=== PATIENT | male | born 1955 | race Caucasian/White ===

== ENCOUNTER 2022-10-11 00:29 | Inpatient (IN) | payer OTHER ==
[2022-10-11 01:59] LABS: HEMATOCRIT 20.8 % (35.4-49); HEMOGLOBIN 7.4 GM/dL (11.7-16.9); MCH 29.7 pg (25.7-33.7); MCHC 35.6 g/dl (32.0-35.9); MEAN CELL VOLUME 83.4 fl (80-96); MEAN PLT VOLUME 7.5 fl (7.5-11.1); PLATELET COUNT 155 10^3/uL (134-434); RDW 20.3 % (11.9-15.9); WHITE BLOOD COUNT 3.8 K/mm3 (4.0-10.0)
[2022-10-11 02:06] LABS: INR 1.15 (0.83-1.09); PROTHROMBIN TIME (PATIENT) 13.3 SEC (9.7-13.0)
[2022-10-11 02:09] LABS: ACTIVATED PTT 26.7 SECONDS (25.2-36.5)
[2022-10-11 02:18] LABS: CALCIUM 8.1 mg/dL (8.5-10.1)
[2022-10-11 02:19] LABS: ALBUMIN 1.6 g/dl (3.4-5.0); BLOOD UREA NITROGEN 13.2 mg/dL (7-18)
[2022-10-11 02:22] LABS: CREATININE 1.3 mg/dL (0.55-1.3)
[2022-10-11 02:23] LABS: BILIRUBIN,TOTAL 1.3 mg/dL (0.2-1); TOT PROT 4.7 g/dl (6.4-8.2)
[2022-10-11 03:19] LABS: ANISOCYTOSIS 2+; MACROCYTOSIS 0; OVALOCYTE 2+
[2022-10-11] MEDS ORDERED: POTASSIUM CHLORIDE ORAL LIQUID 20 MEQ/15 ML PO ONE (04:32)
[2022-10-11] MEDS ORDERED: POTASSIUM CHLORIDE ORAL LIQUID 20 MEQ/15 ML ONE (04:42)
[2022-10-11] MEDS ORDERED: ALBUTEROL SO4 2.5/IPRATROPIUM 0.5 INH SOL 3 ML VIAL.NEB. NEB PRN (06:39)
[2022-10-11] MEDS ORDERED: MAGNESIUM HYDROX 2400MG/30ML ORAL SUSPENSION 30 ML CUP PO PRN (06:43)
[2022-10-11] MEDS ORDERED: SODIUM PHOSPHATE/NA BIPHOS 133 ML ENEMA RC PRN (06:43)
[2022-10-11] MEDS: LEVOTHYROXINE NA 150 MCG TABLET PO SCH (07:29)
[2022-10-11] MEDS: LIPASE/PROTEASE/AMYLASE 6,000 UNIT CAPSULE PO SCH ×3 (07:29→17:55)
[2022-10-11] MEDS ORDERED: LEVOTHYROXINE NA 75 MCG TABLET (FP) ONE (07:33)
[2022-10-11 07:55] LABS: MAGNESIUM 1.6 mg/dL (1.8-2.4)
[2022-10-11 07:59] LABS: PHOSPHOROUS 1.6 mg/dL (2.5-4.9)
[2022-10-11] MEDS ORDERED: SODIUM CHLORIDE NASAL SPRAY 44 ML BOTTLE NS PRN (08:00)
[2022-10-11 11:49] LABS: RETICULOCYTES 4.04 % (0.5-1.5)
[2022-10-11] MEDS: FERROUS SO4 325 MG TABLET (FP) PO SCH (12:30)
[2022-10-11] MEDS: CYANOCOBALAMIN 1,000 MCG TABLET (FP) PO SCH (12:31)
[2022-10-11] MEDS: PYRIDOXINE HCL (B-6) 50 MG TABLET (FP) PO SCH (12:31)
[2022-10-11] MEDS: FOLIC ACID 1 MG TABLET (FP) PO SCH (12:31)
[2022-10-11] MEDS: CHOLECALCIFEROL (VIT D3) 5000 UNITS (125 MCG) CAP PO SCH (12:32)
[2022-10-11 17:33] LABS: BASO % 1.8 % (0-2.0); EOS % 1.4 % (0-4.5); HEMATOCRIT 24.3 % (35.4-49); HEMOGLOBIN 8.5 GM/dL (11.7-16.9); MEAN PLT VOLUME 6.9 fl (7.5-11.1); MONO % 25.3 % (3.8-10.2); NEUT % 34.5 % (42.8-82.8); PLATELET COUNT 152 10^3/uL (134-434); RBC 2.93 M/mm3 (4.00-5.60); RDW 17.7 % (11.9-15.9); WHITE BLOOD COUNT 4.5 K/mm3 (4.0-10.0)
[2022-10-11] MEDS: COLLAGENASE CLOSTRIDIUM HIST. 30 GRAMS TUBE TP SCH (17:58)
[2022-10-11 18:00] LABS: POTASSIUM 3.4 mmol/L (3.5-5.1)
[2022-10-11 18:01] LABS: ANISOCYTOSIS 3+; MACROCYTOSIS 0; TEAR DROP CELLS 1+
[2022-10-11 18:02] LABS: BLOOD UREA NITROGEN 18.2 mg/dL (7-18)
[2022-10-11 18:06] LABS: CREATININE 1.6 mg/dL (0.55-1.3)
[2022-10-11] MEDS: MIRTAZAPINE 15 MG TABLET (FP) PO SCH (21:28)
[2022-10-11] MEDS: oxyCODONE HCL 5 MG TABLET PO PRN (21:29)
[2022-10-12] MEDS: GENTAMICIN SO4 0.1% TOP CREAM 15 GM/TUBE TP SCH ×3 (01:04→21:30)
[2022-10-12] MEDS: LEVOTHYROXINE NA 150 MCG TABLET PO SCH (07:23)
[2022-10-12 08:06] LABS: BASO % 1.4 % (0-2.0); HEMATOCRIT 21.6 % (35.4-49); HEMOGLOBIN 7.6 GM/dL (11.7-16.9); LYMPH % 44.1 % (8-40); MCH 28.9 pg (25.7-33.7); MCHC 35.1 g/dl (32.0-35.9); MEAN CELL VOLUME 82.3 fl (80-96); NEUT % 33.5 % (42.8-82.8); PLATELET COUNT 165 10^3/uL (134-434); RBC 2.63 M/mm3 (4.00-5.60); RDW 18.3 % (11.9-15.9); WHITE BLOOD COUNT 4.7 K/mm3 (4.0-10.0)
[2022-10-12 08:21] LABS: POTASSIUM 3.6 mmol/L (3.5-5.1)
[2022-10-12 08:25] LABS: BLOOD UREA NITROGEN 21.6 mg/dL (7-18); CALCIUM 7.7 mg/dL (8.5-10.1)
[2022-10-12 08:28] LABS: CREATININE 1.9 mg/dL (0.55-1.3)
[2022-10-12] MEDS ORDERED: IRON SUCROSE INJECTION 200 MG in SODIUM CHLORIDE 90 ML IVPB ONE (09:22)
[2022-10-12 10:19] LABS: MAGNESIUM 1.7 mg/dL (1.8-2.4)
[2022-10-12 10:22] LABS: PHOSPHOROUS 2.2 mg/dL (2.5-4.9)
[2022-10-12] MEDS ORDERED: NAPH,MB-DB/K PH,MBDB POWDER PACKET GT ONE (10:46)
[2022-10-12] MEDS: FOLIC ACID 1 MG TABLET (FP) PO SCH (11:14)
[2022-10-12] MEDS: PANTOPRAZOLE 40 MG TABLET PO SCH (11:15)
[2022-10-12] MEDS: FERROUS SO4 325 MG TABLET (FP) PO SCH (11:15)
[2022-10-12] MEDS: CYANOCOBALAMIN 1,000 MCG TABLET (FP) PO SCH (11:15)
[2022-10-12] MEDS: CHOLECALCIFEROL (VIT D3) 5000 UNITS (125 MCG) CAP PO SCH (11:16)
[2022-10-12] MEDS: PYRIDOXINE HCL (B-6) 50 MG TABLET (FP) PO SCH (11:16)
[2022-10-12] MEDS: LIPASE/PROTEASE/AMYLASE 6,000 UNIT CAPSULE PO SCH ×3 (11:18→17:29)
[2022-10-12] MEDS: COLLAGENASE CLOSTRIDIUM HIST. 30 GRAMS TUBE TP SCH (13:01)
[2022-10-12] MEDS: MIRTAZAPINE 15 MG TABLET (FP) PO SCH (21:25)
[2022-10-13] MEDS: oxyCODONE HCL 5 MG TABLET PO PRN (01:46)
[2022-10-13] MEDS: LEVOTHYROXINE NA 100 MCG TABLET (FP) PO SCH (06:22)
[2022-10-13 09:09] LABS: HEMATOCRIT 24.4 % (35.4-49); HEMOGLOBIN 8.5 GM/dL (11.7-16.9); MCH 29.2 pg (25.7-33.7); MCHC 34.9 g/dl (32.0-35.9); MEAN CELL VOLUME 83.8 fl (80-96); MEAN PLT VOLUME 6.8 fl (7.5-11.1); PLATELET COUNT 151 10^3/uL (134-434); RBC 2.92 M/mm3 (4.00-5.60)
[2022-10-13 09:16] LABS: POTASSIUM 3.5 mmol/L (3.5-5.1)
[2022-10-13 09:18] LABS: ALBUMIN 1.5 g/dl (3.4-5.0); BLOOD UREA NITROGEN 30.4 mg/dL (7-18); CALCIUM 8.1 mg/dL (8.5-10.1)
[2022-10-13 09:19] LABS: MAGNESIUM 1.6 mg/dL (1.8-2.4)
[2022-10-13 09:22] LABS: CREATININE 2.4 mg/dL (0.55-1.3); PHOSPHOROUS 1.6 mg/dL (2.5-4.9)
[2022-10-13 09:23] LABS: BILIRUBIN,TOTAL 1.2 mg/dL (0.2-1); TOT PROT 4.2 g/dl (6.4-8.2)
[2022-10-13 10:01] LABS: ANISOCYTOSIS 0; HELMET CELLS 0; HOWELL-JOLLY BODIES 0; MACROCYTOSIS 0; OVALOCYTE 0; ROULEAU 0; SICKELED CELLS 0; TARGET CELLS 0; TEAR DROP CELLS 0; TOXIC GRANULATION 0
[2022-10-13] MEDS: ALBUMIN HUMAN 25% 12.5 GM/50 ML VIAL IV SCH ×3 (10:30→13:04)
[2022-10-13] MEDS: GENTAMICIN SO4 0.1% TOP CREAM 15 GM/TUBE TP SCH ×2 (10:59→21:57)
[2022-10-13] MEDS: PANTOPRAZOLE 40 MG TABLET PO SCH (10:59)
[2022-10-13] MEDS: FOLIC ACID 1 MG TABLET (FP) PO SCH (10:59)
[2022-10-13] MEDS: LIPASE/PROTEASE/AMYLASE 6,000 UNIT CAPSULE PO SCH ×3 (10:59→17:26)
[2022-10-13] MEDS: FERROUS SO4 325 MG TABLET (FP) PO SCH (10:59)
[2022-10-13] MEDS: CYANOCOBALAMIN 1,000 MCG TABLET (FP) PO SCH (11:00)
[2022-10-13] MEDS: COLLAGENASE CLOSTRIDIUM HIST. 30 GRAMS TUBE TP SCH (11:00)
[2022-10-13] MEDS: PYRIDOXINE HCL (B-6) 50 MG TABLET (FP) PO SCH (11:00)
[2022-10-13] MEDS: CHOLECALCIFEROL (VIT D3) 5000 UNITS (125 MCG) CAP PO SCH (11:00)
[2022-10-13] MEDS ORDERED: VANCOMYCIN 1 GM/200 ML PREMIX BAG (RESTRICTED TO ID ONLY) IVPB ONE (11:38)
[2022-10-13] MEDS ORDERED: VANCOMYCIN/WATER FOR INJ (PEG) 1,000 MG/200 ML BAG IVPB ONE (12:00)
[2022-10-13] MEDS: ACETAMINOPHEN 325 MG TABLET (FP) PO PRN (19:58)
[2022-10-13] MEDS: MIRTAZAPINE 15 MG TABLET (FP) PO SCH (21:56)
[2022-10-13] MEDS ORDERED: ACETAMINOPHEN 1000 MG/100 ML BAG IVPB ONE (22:50)
[2022-10-13] MEDS: MEROPENEM 500 MG in DEXTROSE 5%-WATER 100 ML IVPB SCH (23:49)
[2022-10-14] MEDS: LEVOTHYROXINE NA 100 MCG TABLET (FP) PO SCH (06:16)
[2022-10-14] MEDS: MEROPENEM 500 MG in DEXTROSE 5%-WATER 100 ML IVPB SCH ×2 (11:52→22:35)
[2022-10-14] MEDS: FOLIC ACID 1 MG TABLET (FP) PO SCH (11:53)
[2022-10-14] MEDS: PYRIDOXINE HCL (B-6) 50 MG TABLET (FP) PO SCH (11:53)
[2022-10-14] MEDS: FERROUS SO4 325 MG TABLET (FP) PO SCH (11:53)
[2022-10-14] MEDS: CYANOCOBALAMIN 1,000 MCG TABLET (FP) PO SCH (11:53)
[2022-10-14] MEDS: CHOLECALCIFEROL (VIT D3) 5000 UNITS (125 MCG) CAP PO SCH (11:53)
[2022-10-14] MEDS: LIPASE/PROTEASE/AMYLASE 6,000 UNIT CAPSULE PO SCH ×3 (11:53→18:42)
[2022-10-14] MEDS: PANTOPRAZOLE 40 MG TABLET PO SCH (11:53)
[2022-10-14] MEDS: COLLAGENASE CLOSTRIDIUM HIST. 30 GRAMS TUBE TP SCH (11:54)
[2022-10-14] MEDS: GENTAMICIN SO4 0.1% TOP CREAM 15 GM/TUBE TP SCH ×2 (11:54→21:19)
[2022-10-14] MEDS: ACETAMINOPHEN 325 MG TABLET (FP) PO PRN (11:56)
[2022-10-14] MEDS ORDERED: SODIUM CHLORIDE 250 ML IV PRN (14:30)
[2022-10-14] MEDS: MIRTAZAPINE 15 MG TABLET (FP) PO SCH (21:21)
[2022-10-14] MEDS ORDERED: MEROPENEM 500 MG in DEXTROSE 5%-WATER 100 ML IVPB SCH (22:00)
[2022-10-15 01:56] LABS: EPI CELLS >36 /uL (0-25.1); HYALINE CASTS 2 /uL (0-3.1); PH,URINE 5.5 (5.0-8.0); URINE APPEARANCE TURBID; URINE BACTERIA 1497 /uL (0-1359); URINE BILIRUBIN 1+ (NEGATIVE); URINE COLOR DK YELLOW; URINE GLUCOSE (UA) NEGATIVE (NEGATIVE); URINE KETONE TRACE (NEGATIVE); URINE LEUK ESTERASE 3+ (NEGATIVE); URINE NITRITE NEGATIVE (NEGATIVE); URINE PROTEIN 2+ (NEGATIVE); URINE WBC 36727 /uL (0-25.8)
[2022-10-15] MEDS: ACETAMINOPHEN 325 MG TABLET (FP) PO PRN ×2 (05:05→22:19)
[2022-10-15] MEDS: LEVOTHYROXINE NA 100 MCG TABLET (FP) PO SCH (06:00)
[2022-10-15 06:20] LABS: YEAST NONE SEEN (NEGATIVE)
[2022-10-15] MEDS: LIPASE/PROTEASE/AMYLASE 6,000 UNIT CAPSULE PO SCH ×3 (07:55→16:38)
[2022-10-15 08:17] LABS: BASO % 0.6 % (0-2.0); EOS % 2.2 % (0-4.5); HEMATOCRIT 20.2 % (35.4-49); HEMOGLOBIN 7.1 GM/dL (11.7-16.9); LYMPH % 20.2 % (8-40); MCH 29.4 pg (25.7-33.7); MCHC 35.2 g/dl (32.0-35.9); MEAN CELL VOLUME 83.7 fl (80-96); MONO % 9.5 % (3.8-10.2); NEUT % 67.5 % (42.8-82.8); PLATELET COUNT 99 10^3/uL (134-434); RBC 2.42 M/mm3 (4.00-5.60); RDW 17.7 % (11.9-15.9); WHITE BLOOD COUNT 6.9 K/mm3 (4.0-10.0)
[2022-10-15 08:29] LABS: POTASSIUM 3.3 mmol/L (3.5-5.1)
[2022-10-15 08:47] LABS: ALBUMIN 1.4 g/dl (3.4-5.0); CALCIUM 8.4 mg/dL (8.5-10.1)
[2022-10-15 08:51] LABS: CREATININE 2.2 mg/dL (0.55-1.3)
[2022-10-15 08:52] LABS: TOT PROT 3.9 g/dl (6.4-8.2)
[2022-10-15] MEDS ORDERED: EPOETIN ALFA-EPBX 4,000 UNIT/ML VIAL IVPUSH ONE (09:30)
[2022-10-15] MEDS: PYRIDOXINE HCL (B-6) 50 MG TABLET (FP) PO SCH (09:30)
[2022-10-15] MEDS: PANTOPRAZOLE 40 MG TABLET PO SCH (09:30)
[2022-10-15] MEDS: FERROUS SO4 325 MG TABLET (FP) PO SCH (09:31)
[2022-10-15] MEDS: FOLIC ACID 1 MG TABLET (FP) PO SCH (09:31)
[2022-10-15] MEDS: CYANOCOBALAMIN 1,000 MCG TABLET (FP) PO SCH (09:39)
[2022-10-15] MEDS: CHOLECALCIFEROL (VIT D3) 5000 UNITS (125 MCG) CAP PO SCH (09:39)
[2022-10-15] MEDS: COLLAGENASE CLOSTRIDIUM HIST. 30 GRAMS TUBE TP SCH (09:39)
[2022-10-15] MEDS: MEROPENEM 500 MG in DEXTROSE 5%-WATER 100 ML IVPB SCH ×2 (14:40→23:41)
[2022-10-15 15:34] VITALS: BMI 22.8
[2022-10-15] MEDS: GENTAMICIN SO4 0.1% TOP CREAM 15 GM/TUBE TP SCH ×2 (16:37→22:20)
[2022-10-15] MEDS: MIRTAZAPINE 15 MG TABLET (FP) PO SCH (22:19)
[2022-10-16] MEDS: LEVOTHYROXINE NA 100 MCG TABLET (FP) PO SCH (06:07)
[2022-10-16 08:46] LABS: HEMATOCRIT 21.5 % (35.4-49); HEMOGLOBIN 7.4 GM/dL (11.7-16.9); MCH 29.2 pg (25.7-33.7); MCHC 34.4 g/dl (32.0-35.9); MEAN CELL VOLUME 84.8 fl (80-96); MEAN PLT VOLUME 7.5 fl (7.5-11.1); PLATELET COUNT 123 10^3/uL (134-434); RBC 2.53 M/mm3 (4.00-5.60); RDW 17.5 % (11.9-15.9); WHITE BLOOD COUNT 8.4 K/mm3 (4.0-10.0)
[2022-10-16] MEDS: LIPASE/PROTEASE/AMYLASE 6,000 UNIT CAPSULE PO SCH ×3 (08:59→17:21)
[2022-10-16] MEDS: FERROUS SO4 325 MG TABLET (FP) PO SCH (09:07)
[2022-10-16] MEDS: FOLIC ACID 1 MG TABLET (FP) PO SCH (09:07)
[2022-10-16] MEDS: PANTOPRAZOLE 40 MG TABLET PO SCH (09:08)
[2022-10-16] MEDS: CYANOCOBALAMIN 1,000 MCG TABLET (FP) PO SCH (09:08)
[2022-10-16] MEDS: CHOLECALCIFEROL (VIT D3) 5000 UNITS (125 MCG) CAP PO SCH (09:11)
[2022-10-16] MEDS: PYRIDOXINE HCL (B-6) 50 MG TABLET (FP) PO SCH (09:11)
[2022-10-16] MEDS: COLLAGENASE CLOSTRIDIUM HIST. 30 GRAMS TUBE TP SCH (09:12)
[2022-10-16] MEDS: GENTAMICIN SO4 0.1% TOP CREAM 15 GM/TUBE TP SCH ×2 (09:12→21:49)
[2022-10-16] MEDS: MEROPENEM 500 MG in DEXTROSE 5%-WATER 100 ML IVPB SCH (13:34)
[2022-10-16 16:20] LABS: BF WBC & OTHER NUCLEATED CELLS 415 /mm3; BODY FLUID MONOCYTE 9 %
[2022-10-16] MEDS: MIRTAZAPINE 15 MG TABLET (FP) PO SCH (21:48)
[2022-10-16] MEDS: ACETAMINOPHEN 325 MG TABLET (FP) PO PRN (21:48)
[2022-10-17] MEDS: MEROPENEM 500 MG in DEXTROSE 5%-WATER 100 ML IVPB SCH ×3 (00:47→23:50)
[2022-10-17] MEDS: LEVOTHYROXINE NA 100 MCG TABLET (FP) PO SCH (05:59)
[2022-10-17] MEDS: LIPASE/PROTEASE/AMYLASE 6,000 UNIT CAPSULE PO SCH ×3 (07:50→17:58)
[2022-10-17] MEDS: ALBUMIN HUMAN 25% 12.5 GM/50 ML VIAL IV SCH ×4 (08:15→12:19)
[2022-10-17] MEDS ORDERED: EPOETIN ALFA-EPBX 4,000 UNIT/ML VIAL SQ ONE (09:00)
[2022-10-17] MEDS ORDERED: SODIUM CHLORIDE 250 ML IV PRN (09:00)
[2022-10-17 09:24] LABS: HEMATOCRIT 19.4 % (35.4-49); MCH 29.9 pg (25.7-33.7); MCHC 36.1 g/dl (32.0-35.9); MEAN PLT VOLUME 6.9 fl (7.5-11.1); PLATELET COUNT 89 10^3/uL (134-434); RBC 2.34 M/mm3 (4.00-5.60); RDW 17.2 % (11.9-15.9); WHITE BLOOD COUNT 9.4 K/mm3 (4.0-10.0)
[2022-10-17 09:47] LABS: POTASSIUM 3.3 mmol/L (3.5-5.1)
[2022-10-17 09:49] LABS: CALCIUM 8.3 mg/dL (8.5-10.1)
[2022-10-17 09:53] LABS: CREATININE 1.2 mg/dL (0.55-1.3)
[2022-10-17 09:55] LABS: BILIRUBIN,TOTAL 0.8 mg/dL (0.2-1); TOT PROT 4.3 g/dl (6.4-8.2)
[2022-10-17 10:02] LABS: ANISOCYTOSIS 0; HELMET CELLS 0; HOWELL-JOLLY BODIES 0; MACROCYTOSIS 0; OVALOCYTE 0; ROULEAU 0; SICKELED CELLS 0; TARGET CELLS 0; TEAR DROP CELLS 0; TOXIC GRANULATION 0
[2022-10-17] MEDS: CHOLECALCIFEROL (VIT D3) 5000 UNITS (125 MCG) CAP PO SCH (13:19)
[2022-10-17] MEDS: CYANOCOBALAMIN 1,000 MCG TABLET (FP) PO SCH (13:19)
[2022-10-17] MEDS: PYRIDOXINE HCL (B-6) 50 MG TABLET (FP) PO SCH (13:19)
[2022-10-17] MEDS: FERROUS SO4 325 MG TABLET (FP) PO SCH (13:19)
[2022-10-17] MEDS: FOLIC ACID 1 MG TABLET (FP) PO SCH (13:19)
[2022-10-17] MEDS: PANTOPRAZOLE 40 MG TABLET PO SCH (13:19)
[2022-10-17] MEDS: GENTAMICIN SO4 0.1% TOP CREAM 15 GM/TUBE TP SCH ×2 (14:00→21:51)
[2022-10-17] MEDS: COLLAGENASE CLOSTRIDIUM HIST. 30 GRAMS TUBE TP SCH (14:00)
[2022-10-17 14:10] LABS: BODY FLUID ALBUMIN 0.9 g/dL (Not Estab.)
[2022-10-17] MEDS: ACETAMINOPHEN 325 MG TABLET (FP) PO PRN (21:47)
[2022-10-17] MEDS: MIRTAZAPINE 15 MG TABLET (FP) PO SCH (21:50)
[2022-10-18] MEDS: LEVOTHYROXINE NA 100 MCG TABLET (FP) PO SCH (06:36)
[2022-10-18] MEDS: LIPASE/PROTEASE/AMYLASE 6,000 UNIT CAPSULE PO SCH ×3 (08:04→17:55)
[2022-10-18 08:32] LABS: HEMATOCRIT 23.5 % (35.4-49); HEMOGLOBIN 8.4 GM/dL (11.7-16.9); MCH 29.6 pg (25.7-33.7); MCHC 35.8 g/dl (32.0-35.9); MEAN CELL VOLUME 82.9 fl (80-96); MEAN PLT VOLUME 7.1 fl (7.5-11.1); PLATELET COUNT 90 10^3/uL (134-434); RBC 2.83 M/mm3 (4.00-5.60); WHITE BLOOD COUNT 11.2 K/mm3 (4.0-10.0)
[2022-10-18 09:13] LABS: POTASSIUM 3.2 mmol/L (3.5-5.1)
[2022-10-18 09:30] LABS: ALBUMIN 1.8 g/dl (3.4-5.0)
[2022-10-18 09:31] LABS: CALCIUM 8.4 mg/dL (8.5-10.1)
[2022-10-18 09:32] LABS: BLOOD UREA NITROGEN 21.5 mg/dL (7-18)
[2022-10-18 09:35] LABS: CREATININE 1.4 mg/dL (0.55-1.3)
[2022-10-18 09:36] LABS: TOT PROT 4.3 g/dl (6.4-8.2)
[2022-10-18 09:37] LABS: BILIRUBIN,TOTAL 0.9 mg/dL (0.2-1)
[2022-10-18] MEDS: CHOLECALCIFEROL (VIT D3) 5000 UNITS (125 MCG) CAP PO SCH (09:47)
[2022-10-18] MEDS: COLLAGENASE CLOSTRIDIUM HIST. 30 GRAMS TUBE TP SCH (09:48)
[2022-10-18] MEDS: CYANOCOBALAMIN 1,000 MCG TABLET (FP) PO SCH (09:48)
[2022-10-18] MEDS: FERROUS SO4 325 MG TABLET (FP) PO SCH (09:48)
[2022-10-18] MEDS: PYRIDOXINE HCL (B-6) 50 MG TABLET (FP) PO SCH (09:48)
[2022-10-18] MEDS: FOLIC ACID 1 MG TABLET (FP) PO SCH (09:48)
[2022-10-18] MEDS: GENTAMICIN SO4 0.1% TOP CREAM 15 GM/TUBE TP SCH ×2 (09:48→21:47)
[2022-10-18] MEDS: PANTOPRAZOLE 40 MG TABLET PO SCH (09:48)
[2022-10-18 09:59] LABS: ANISOCYTOSIS 0; MACROCYTOSIS 0
[2022-10-18] MEDS: MEROPENEM 500 MG in DEXTROSE 5%-WATER 100 ML IVPB SCH (10:42)
[2022-10-18] MEDS: ACETAMINOPHEN 325 MG TABLET (FP) PO PRN (14:44)
[2022-10-18] MEDS: MIRTAZAPINE 15 MG TABLET (FP) PO SCH (21:47)
[2022-10-19] MEDS: MEROPENEM 500 MG in DEXTROSE 5%-WATER 100 ML IVPB SCH ×3 (01:01→23:46)
[2022-10-19] MEDS: LEVOTHYROXINE NA 100 MCG TABLET (FP) PO SCH (06:13)
[2022-10-19] MEDS: PYRIDOXINE HCL (B-6) 50 MG TABLET (FP) PO SCH (09:42)
[2022-10-19] MEDS: CYANOCOBALAMIN 1,000 MCG TABLET (FP) PO SCH (09:42)
[2022-10-19] MEDS: PANTOPRAZOLE 40 MG TABLET PO SCH (09:42)
[2022-10-19] MEDS: LIPASE/PROTEASE/AMYLASE 6,000 UNIT CAPSULE PO SCH ×3 (09:42→17:51)
[2022-10-19] MEDS: FOLIC ACID 1 MG TABLET (FP) PO SCH (09:42)
[2022-10-19] MEDS: FERROUS SO4 325 MG TABLET (FP) PO SCH (09:42)
[2022-10-19] MEDS: CHOLECALCIFEROL (VIT D3) 5000 UNITS (125 MCG) CAP PO SCH (09:42)
[2022-10-19] MEDS: GENTAMICIN SO4 0.1% TOP CREAM 15 GM/TUBE TP SCH ×2 (09:43→21:39)
[2022-10-19] MEDS: COLLAGENASE CLOSTRIDIUM HIST. 30 GRAMS TUBE TP SCH (09:43)
[2022-10-19 10:03] LABS: BASO % 0.4 % (0-2.0); EOS % 1.1 % (0-4.5); HEMATOCRIT 23.1 % (35.4-49); HEMOGLOBIN 8.5 GM/dL (11.7-16.9); LYMPH % 15.9 % (8-40); MCH 30.6 pg (25.7-33.7); MCHC 36.8 g/dl (32.0-35.9); MEAN CELL VOLUME 83.2 fl (80-96); MEAN PLT VOLUME 7.4 fl (7.5-11.1); MONO % 3.8 % (3.8-10.2); NEUT % 78.8 % (42.8-82.8); PLATELET COUNT 92 10^3/uL (134-434); RBC 2.78 M/mm3 (4.00-5.60); RDW 16.8 % (11.9-15.9); WHITE BLOOD COUNT 15.4 K/mm3 (4.0-10.0)
[2022-10-19 10:26] LABS: POTASSIUM 3.5 mmol/L (3.5-5.1)
[2022-10-19 10:28] LABS: CALCIUM 8.1 mg/dL (8.5-10.1)
[2022-10-19 10:29] LABS: ALBUMIN 1.7 g/dl (3.4-5.0); BLOOD UREA NITROGEN 33.2 mg/dL (7-18)
[2022-10-19 10:32] LABS: CREATININE 1.7 mg/dL (0.55-1.3)
[2022-10-19 10:33] LABS: TOT PROT 4.3 g/dl (6.4-8.2)
[2022-10-19 10:34] LABS: BILIRUBIN,TOTAL 0.9 mg/dL (0.2-1)
[2022-10-19 10:58] LABS: ANISOCYTOSIS 0; MACROCYTOSIS 0
[2022-10-19] MEDS: MIRTAZAPINE 15 MG TABLET (FP) PO SCH (21:39)
[2022-10-20] MEDS ORDERED: SODIUM CHLORIDE 250 ML IV PRN (06:32)
[2022-10-20] MEDS: LEVOTHYROXINE NA 100 MCG TABLET (FP) PO SCH (06:54)
[2022-10-20 08:41] LABS: HEMATOCRIT 23.8 % (35.4-49); HEMOGLOBIN 8.2 GM/dL (11.7-16.9); MCH 28.7 pg (25.7-33.7); MCHC 34.7 g/dl (32.0-35.9); MEAN CELL VOLUME 82.7 fl (80-96); MEAN PLT VOLUME 7.1 fl (7.5-11.1); PLATELET COUNT 96 10^3/uL (134-434); RBC 2.88 M/mm3 (4.00-5.60); RDW 16.8 % (11.9-15.9); WHITE BLOOD COUNT 13.4 K/mm3 (4.0-10.0)
[2022-10-20 08:44] LABS: POTASSIUM 3.6 mmol/L (3.5-5.1)
[2022-10-20 08:51] LABS: ALBUMIN 1.6 g/dl (3.4-5.0); CALCIUM 8.1 mg/dL (8.5-10.1)
[2022-10-20 08:52] LABS: BLOOD UREA NITROGEN 42.2 mg/dL (7-18)
[2022-10-20 08:53] LABS: CREATININE 1.9 mg/dL (0.55-1.3)
[2022-10-20 08:55] LABS: BILIRUBIN,TOTAL 0.7 mg/dL (0.2-1); TOT PROT 4.2 g/dl (6.4-8.2)
[2022-10-20 09:52] LABS: ANISOCYTOSIS 0; HELMET CELLS 0; HOWELL-JOLLY BODIES 0; MACROCYTOSIS 0; OVALOCYTE 0; ROULEAU 0; SICKELED CELLS 0; TARGET CELLS 0; TEAR DROP CELLS 0; TOXIC GRANULATION 0
[2022-10-20] MEDS: FERROUS SO4 325 MG TABLET (FP) PO SCH (11:25)
[2022-10-20] MEDS: PANTOPRAZOLE 40 MG TABLET PO SCH (11:25)
[2022-10-20] MEDS: MEROPENEM 500 MG in DEXTROSE 5%-WATER 100 ML IVPB SCH (11:25)
[2022-10-20] MEDS: CYANOCOBALAMIN 1,000 MCG TABLET (FP) PO SCH (11:25)
[2022-10-20] MEDS: PYRIDOXINE HCL (B-6) 50 MG TABLET (FP) PO SCH (11:25)
[2022-10-20] MEDS: FOLIC ACID 1 MG TABLET (FP) PO SCH (11:25)
[2022-10-20] MEDS: LIPASE/PROTEASE/AMYLASE 6,000 UNIT CAPSULE PO SCH ×3 (11:26→17:44)
[2022-10-20] MEDS: CHOLECALCIFEROL (VIT D3) 5000 UNITS (125 MCG) CAP PO SCH (11:26)
[2022-10-20] MEDS: COLLAGENASE CLOSTRIDIUM HIST. 30 GRAMS TUBE TP SCH (11:27)
[2022-10-20] MEDS: GENTAMICIN SO4 0.1% TOP CREAM 15 GM/TUBE TP SCH ×2 (11:28→21:23)
[2022-10-20] MEDS: LYTES/YERBA SANTA 240 ML BOTTLE MM SCH (17:44)
[2022-10-20] MEDS: NYSTATIN 500,000 UNITS/5 ML SUSPENSION PO SCH (17:44)
[2022-10-20] MEDS: MIRTAZAPINE 15 MG TABLET (FP) PO SCH (21:24)
[2022-10-21] MEDS: NYSTATIN 500,000 UNITS/5 ML SUSPENSION PO SCH ×4 (00:13→18:54)
[2022-10-21] MEDS: MEROPENEM 500 MG in DEXTROSE 5%-WATER 100 ML IVPB SCH ×2 (00:15→14:32)
[2022-10-21] MEDS: LEVOTHYROXINE NA 100 MCG TABLET (FP) PO SCH (06:00)
[2022-10-21] MEDS: LYTES/YERBA SANTA 240 ML BOTTLE MM SCH ×3 (06:00→18:16)
[2022-10-21] MEDS: LIPASE/PROTEASE/AMYLASE 6,000 UNIT CAPSULE PO SCH ×3 (11:58→18:54)
[2022-10-21] MEDS: CYANOCOBALAMIN 1,000 MCG TABLET (FP) PO SCH (11:59)
[2022-10-21] MEDS: GENTAMICIN SO4 0.1% TOP CREAM 15 GM/TUBE TP SCH ×2 (11:59→22:27)
[2022-10-21] MEDS: FOLIC ACID 1 MG TABLET (FP) PO SCH (11:59)
[2022-10-21] MEDS: PANTOPRAZOLE 40 MG TABLET PO SCH (11:59)
[2022-10-21] MEDS: PYRIDOXINE HCL (B-6) 50 MG TABLET (FP) PO SCH (11:59)
[2022-10-21] MEDS: FERROUS SO4 325 MG TABLET (FP) PO SCH (11:59)
[2022-10-21] MEDS: CHOLECALCIFEROL (VIT D3) 5000 UNITS (125 MCG) CAP PO SCH (12:00)
[2022-10-21] MEDS: COLLAGENASE CLOSTRIDIUM HIST. 30 GRAMS TUBE TP SCH (14:32)
[2022-10-21] MEDS ORDERED: PHYTONADIONE 10 MG/1 ML AMP IVPB ONE (18:42)
[2022-10-21] MEDS ORDERED: IRON SUCROSE INJECTION 200 MG in SODIUM CHLORIDE 90 ML IVPB ONE (21:00)
[2022-10-21] MEDS: MIRTAZAPINE 15 MG TABLET (FP) PO SCH (22:26)
[2022-10-21] MEDS ORDERED: MEROPENEM 500 MG VIAL (RESTRICTED TO ID) IVPB ONE (23:49)
[2022-10-22] MEDS: MEROPENEM 500 MG in DEXTROSE 5%-WATER 100 ML IVPB SCH ×2 (00:03→10:55)
[2022-10-22] MEDS: NYSTATIN 500,000 UNITS/5 ML SUSPENSION PO SCH ×4 (00:04→18:30)
[2022-10-22] MEDS: LEVOTHYROXINE NA 100 MCG TABLET (FP) PO SCH (07:09)
[2022-10-22] MEDS: LYTES/YERBA SANTA 240 ML BOTTLE MM SCH ×3 (07:10→16:45)
[2022-10-22 07:57] LABS: INR 1.12 (0.83-1.09)
[2022-10-22] MEDS: LIPASE/PROTEASE/AMYLASE 6,000 UNIT CAPSULE PO SCH ×3 (08:02→18:30)
[2022-10-22 08:18] LABS: ALBUMIN 1.7 g/dl (3.4-5.0)
[2022-10-22 08:21] LABS: BILIRUBIN,DIRECT 0.5 mg/dL (0.0-0.2)
[2022-10-22 08:23] LABS: BILIRUBIN,TOTAL 0.8 mg/dL (0.2-1); TOT PROT 4.3 g/dl (6.4-8.2)
[2022-10-22] MEDS: FERROUS SO4 325 MG TABLET (FP) PO SCH (10:54)
[2022-10-22] MEDS: PYRIDOXINE HCL (B-6) 50 MG TABLET (FP) PO SCH (10:54)
[2022-10-22] MEDS: CHOLECALCIFEROL (VIT D3) 5000 UNITS (125 MCG) CAP PO SCH (10:54)
[2022-10-22] MEDS: FOLIC ACID 1 MG TABLET (FP) PO SCH (10:54)
[2022-10-22] MEDS: PANTOPRAZOLE 40 MG TABLET PO SCH (10:54)
[2022-10-22] MEDS: CYANOCOBALAMIN 1,000 MCG TABLET (FP) PO SCH (10:54)
[2022-10-22] MEDS: FUROSEMIDE 40 MG TABLET (FP) PO SCH (10:54)
[2022-10-22] MEDS: GENTAMICIN SO4 0.1% TOP CREAM 15 GM/TUBE TP SCH ×2 (10:55→21:48)
[2022-10-22] MEDS: COLLAGENASE CLOSTRIDIUM HIST. 30 GRAMS TUBE TP SCH (10:55)
[2022-10-22] MEDS: ALBUMIN HUMAN 25% 12.5 GM/50 ML VIAL IV SCH ×3 (11:23→18:30)
[2022-10-22 16:02] LABS: BF WBC & OTHER NUCLEATED CELLS 376 /mm3
[2022-10-22 16:44] LABS: BODY FLUID BASOPHIL 2 %; BODY FLUID MACROPHAGES 4 %; BODY FLUID MONOCYTE 37 %; BODYL FLD EOSINOPHIL 26 %
[2022-10-22] MEDS ORDERED: SPIRONOLACTONE 25 MG TABLET PO ONE (18:19)
[2022-10-22] MEDS: MIRTAZAPINE 15 MG TABLET (FP) PO SCH (21:47)
[2022-10-23] MEDS: MEROPENEM 500 MG in DEXTROSE 5%-WATER 100 ML IVPB SCH ×2 (00:49→11:30)
[2022-10-23] MEDS: NYSTATIN 500,000 UNITS/5 ML SUSPENSION PO SCH ×4 (00:49→18:04)
[2022-10-23] MEDS: ALBUMIN HUMAN 25% 12.5 GM/50 ML VIAL IV SCH ×2 (01:29→06:13)
[2022-10-23] MEDS: LEVOTHYROXINE NA 100 MCG TABLET (FP) PO SCH (06:11)
[2022-10-23] MEDS: LYTES/YERBA SANTA 240 ML BOTTLE MM SCH ×3 (06:13→18:05)
[2022-10-23] MEDS: FOLIC ACID 1 MG TABLET (FP) PO SCH (09:46)
[2022-10-23] MEDS: PANTOPRAZOLE 40 MG TABLET PO SCH (09:46)
[2022-10-23] MEDS: CYANOCOBALAMIN 1,000 MCG TABLET (FP) PO SCH (09:46)
[2022-10-23] MEDS: LIPASE/PROTEASE/AMYLASE 6,000 UNIT CAPSULE PO SCH ×3 (09:46→18:04)
[2022-10-23] MEDS: FERROUS SO4 325 MG TABLET (FP) PO SCH (09:46)
[2022-10-23] MEDS: PYRIDOXINE HCL (B-6) 50 MG TABLET (FP) PO SCH (09:47)
[2022-10-23] MEDS: CHOLECALCIFEROL (VIT D3) 5000 UNITS (125 MCG) CAP PO SCH (09:47)
[2022-10-23] MEDS: FUROSEMIDE 40 MG TABLET (FP) PO SCH (09:47)
[2022-10-23] MEDS: COLLAGENASE CLOSTRIDIUM HIST. 30 GRAMS TUBE TP SCH (09:47)
[2022-10-23] MEDS: GENTAMICIN SO4 0.1% TOP CREAM 15 GM/TUBE TP SCH ×2 (09:47→22:08)
[2022-10-23 10:01] LABS: BASO % 1.1 % (0-2.0); EOS % 1.4 % (0-4.5); HEMATOCRIT 21.6 % (35.4-49); HEMOGLOBIN 7.3 GM/dL (11.7-16.9); LYMPH % 22.8 % (8-40); MCH 28.6 pg (25.7-33.7); MCHC 33.7 g/dl (32.0-35.9); MEAN CELL VOLUME 84.7 fl (80-96); MEAN PLT VOLUME 7.2 fl (7.5-11.1); MONO % 4.9 % (3.8-10.2); NEUT % 69.8 % (42.8-82.8); PLATELET COUNT 106 10^3/uL (134-434); RBC 2.54 M/mm3 (4.00-5.60); RDW 17.7 % (11.9-15.9); WHITE BLOOD COUNT 9.2 K/mm3 (4.0-10.0)
[2022-10-23 10:09] LABS: INR 1.1 (0.83-1.09); PROTHROMBIN TIME (PATIENT) 12.7 SEC (9.7-13.0)
[2022-10-23 10:33] LABS: CALCIUM 8.3 mg/dL (8.5-10.1)
[2022-10-23 10:34] LABS: BLOOD UREA NITROGEN 40.1 mg/dL (7-18); CREATININE 1.8 mg/dL (0.55-1.3)
[2022-10-23 10:36] LABS: BILIRUBIN,TOTAL 0.7 mg/dL (0.2-1); TOT PROT 4.2 g/dl (6.4-8.2)
[2022-10-23 10:37] LABS: BILIRUBIN,DIRECT 0.4 mg/dL (0.0-0.2)
[2022-10-23] MEDS: SPIRONOLACTONE 25 MG TABLET PO SCH (11:30)
[2022-10-23] MEDS ORDERED: SODIUM CHLORIDE 250 ML IV PRN (14:50)
[2022-10-23 16:08] LABS: BODY FLUID ALBUMIN 1.1 g/dL (Not Estab.)
[2022-10-23] MEDS: MIRTAZAPINE 15 MG TABLET (FP) PO SCH (22:07)
[2022-10-24] MEDS: MEROPENEM 500 MG in DEXTROSE 5%-WATER 100 ML IVPB SCH ×2 (00:43→12:23)
[2022-10-24] MEDS: NYSTATIN 500,000 UNITS/5 ML SUSPENSION PO SCH ×5 (00:43→18:44)
[2022-10-24] MEDS: LEVOTHYROXINE NA 100 MCG TABLET (FP) PO SCH (06:58)
[2022-10-24] MEDS: LYTES/YERBA SANTA 240 ML BOTTLE MM SCH ×3 (06:58→18:44)
[2022-10-24] MEDS: LIPASE/PROTEASE/AMYLASE 6,000 UNIT CAPSULE PO SCH ×3 (07:44→18:44)
[2022-10-24 09:38] LABS: INR 1.04 (0.83-1.09); PROTHROMBIN TIME (PATIENT) 12.1 SEC (9.7-13.0)
[2022-10-24] MEDS: CYANOCOBALAMIN 1,000 MCG TABLET (FP) PO SCH (09:43)
[2022-10-24] MEDS: FERROUS SO4 325 MG TABLET (FP) PO SCH (09:43)
[2022-10-24] MEDS: PANTOPRAZOLE 40 MG TABLET PO SCH (09:43)
[2022-10-24] MEDS: FOLIC ACID 1 MG TABLET (FP) PO SCH (09:43)
[2022-10-24] MEDS: FUROSEMIDE 40 MG TABLET (FP) PO SCH (09:44)
[2022-10-24] MEDS: PYRIDOXINE HCL (B-6) 50 MG TABLET (FP) PO SCH (09:44)
[2022-10-24] MEDS: SPIRONOLACTONE 25 MG TABLET PO SCH (09:44)
[2022-10-24] MEDS: CHOLECALCIFEROL (VIT D3) 5000 UNITS (125 MCG) CAP PO SCH (09:44)
[2022-10-24] MEDS: GENTAMICIN SO4 0.1% TOP CREAM 15 GM/TUBE TP SCH ×2 (09:45→22:35)
[2022-10-24] MEDS: COLLAGENASE CLOSTRIDIUM HIST. 30 GRAMS TUBE TP SCH (09:46)
[2022-10-24 10:04] LABS: ALBUMIN 1.9 g/dl (3.4-5.0)
[2022-10-24 10:08] LABS: BILIRUBIN,TOTAL 0.8 mg/dL (0.2-1); TOT PROT 4.3 g/dl (6.4-8.2)
[2022-10-24 10:12] LABS: BILIRUBIN,DIRECT 0.5 mg/dL (0.0-0.2)
[2022-10-24 10:25] LABS: BASO % 0.6 % (0-2.0); EOS % 2.7 % (0-4.5); HEMATOCRIT 26.6 % (35.4-49); HEMOGLOBIN 9.3 GM/dL (11.7-16.9); LYMPH % 22.9 % (8-40); MCH 28.9 pg (25.7-33.7); MCHC 34.8 g/dl (32.0-35.9); MEAN CELL VOLUME 82.9 fl (80-96); MEAN PLT VOLUME 7.1 fl (7.5-11.1); NEUT % 68.8 % (42.8-82.8); PLATELET COUNT 111 10^3/uL (134-434); RBC 3.21 M/mm3 (4.00-5.60); RDW 16.8 % (11.9-15.9); WHITE BLOOD COUNT 10.9 K/mm3 (4.0-10.0)
[2022-10-24 10:35] LABS: POTASSIUM 4.1 mmol/L (3.5-5.1)
[2022-10-24 10:36] LABS: CALCIUM 8.5 mg/dL (8.5-10.1)
[2022-10-24 10:37] LABS: BLOOD UREA NITROGEN 48.1 mg/dL (7-18)
[2022-10-24 10:40] LABS: CREATININE 1.9 mg/dL (0.55-1.3)
[2022-10-24] MEDS: MIRTAZAPINE 15 MG TABLET (FP) PO SCH (22:33)
[2022-10-24] MEDS: POLYETHYLENE GLYCOL (HEALTHYLAX) 3350 17 GM PACKET PO SCH (22:45)
[2022-10-25] MEDS: NYSTATIN 500,000 UNITS/5 ML SUSPENSION PO SCH ×5 (00:58→23:38)
[2022-10-25] MEDS: LEVOTHYROXINE NA 100 MCG TABLET (FP) PO SCH (06:24)
[2022-10-25] MEDS: LYTES/YERBA SANTA 240 ML BOTTLE MM SCH ×3 (06:38→16:45)
[2022-10-25] MEDS: LIPASE/PROTEASE/AMYLASE 6,000 UNIT CAPSULE PO SCH ×3 (08:38→17:28)
[2022-10-25] MEDS: FUROSEMIDE 40 MG TABLET (FP) PO SCH (11:07)
[2022-10-25] MEDS: SPIRONOLACTONE 25 MG TABLET PO SCH (11:07)
[2022-10-25] MEDS: POLYETHYLENE GLYCOL (HEALTHYLAX) 3350 17 GM PACKET PO SCH ×2 (11:07→22:38)
[2022-10-25] MEDS: CHOLECALCIFEROL (VIT D3) 5000 UNITS (125 MCG) CAP PO SCH (11:07)
[2022-10-25] MEDS: CYANOCOBALAMIN 1,000 MCG TABLET (FP) PO SCH (11:07)
[2022-10-25] MEDS: FOLIC ACID 1 MG TABLET (FP) PO SCH (11:07)
[2022-10-25] MEDS: PANTOPRAZOLE 40 MG TABLET PO SCH (11:08)
[2022-10-25] MEDS: FERROUS SO4 325 MG TABLET (FP) PO SCH (11:08)
[2022-10-25] MEDS: PYRIDOXINE HCL (B-6) 50 MG TABLET (FP) PO SCH (11:22)
[2022-10-25] MEDS: COLLAGENASE CLOSTRIDIUM HIST. 30 GRAMS TUBE TP SCH (15:39)
[2022-10-25] MEDS: GENTAMICIN SO4 0.1% TOP CREAM 15 GM/TUBE TP SCH ×2 (15:39→22:39)
[2022-10-25] MEDS: MIRTAZAPINE 15 MG TABLET (FP) PO SCH (22:38)
[2022-10-26] MEDS: NYSTATIN 500,000 UNITS/5 ML SUSPENSION PO SCH ×3 (05:26→18:10)
[2022-10-26] MEDS: LEVOTHYROXINE NA 100 MCG TABLET (FP) PO SCH (07:04)
[2022-10-26] MEDS: LYTES/YERBA SANTA 240 ML BOTTLE MM SCH ×3 (07:04→17:14)
[2022-10-26] MEDS: LIPASE/PROTEASE/AMYLASE 6,000 UNIT CAPSULE PO SCH ×3 (08:19→18:10)
[2022-10-26] MEDS: POLYETHYLENE GLYCOL (HEALTHYLAX) 3350 17 GM PACKET PO SCH ×2 (10:17→21:59)
[2022-10-26] MEDS: FERROUS SO4 325 MG TABLET (FP) PO SCH (10:17)
[2022-10-26] MEDS: PANTOPRAZOLE 40 MG TABLET PO SCH (10:18)
[2022-10-26] MEDS: FUROSEMIDE 40 MG TABLET (FP) PO SCH (10:18)
[2022-10-26] MEDS: CHOLECALCIFEROL (VIT D3) 5000 UNITS (125 MCG) CAP PO SCH (10:18)
[2022-10-26] MEDS: PYRIDOXINE HCL (B-6) 50 MG TABLET (FP) PO SCH (10:18)
[2022-10-26] MEDS: CYANOCOBALAMIN 1,000 MCG TABLET (FP) PO SCH (10:18)
[2022-10-26] MEDS: FOLIC ACID 1 MG TABLET (FP) PO SCH (10:18)
[2022-10-26] MEDS: SPIRONOLACTONE 25 MG TABLET PO SCH (10:18)
[2022-10-26] MEDS: COLLAGENASE CLOSTRIDIUM HIST. 30 GRAMS TUBE TP SCH (10:21)
[2022-10-26] MEDS: GENTAMICIN SO4 0.1% TOP CREAM 15 GM/TUBE TP SCH ×2 (10:21→22:03)
[2022-10-26] MEDS: MIRTAZAPINE 15 MG TABLET (FP) PO SCH (21:59)
[2022-10-27] MEDS: NYSTATIN 500,000 UNITS/5 ML SUSPENSION PO SCH ×5 (00:10→23:08)
[2022-10-27] MEDS: LEVOTHYROXINE NA 100 MCG TABLET (FP) PO SCH (06:29)
[2022-10-27] MEDS: LYTES/YERBA SANTA 240 ML BOTTLE MM SCH ×3 (06:30→18:03)
[2022-10-27] MEDS: LIPASE/PROTEASE/AMYLASE 6,000 UNIT CAPSULE PO SCH ×3 (10:04→18:03)
[2022-10-27] MEDS ORDERED: SODIUM CHLORIDE 250 ML IV PRN (10:31)
[2022-10-27 10:42] LABS: HEMATOCRIT 25.3 % (35.4-49); HEMOGLOBIN 8.8 GM/dL (11.7-16.9); MCHC 34.6 g/dl (32.0-35.9); MEAN CELL VOLUME 83.7 fl (80-96); MEAN PLT VOLUME 6.7 fl (7.5-11.1); PLATELET COUNT 150 10^3/uL (134-434); RBC 3.02 M/mm3 (4.00-5.60); RDW 17.3 % (11.9-15.9); WHITE BLOOD COUNT 10.8 K/mm3 (4.0-10.0)
[2022-10-27 11:00] LABS: POTASSIUM 4.1 mmol/L (3.5-5.1)
[2022-10-27 11:02] LABS: CALCIUM 9.2 mg/dL (8.5-10.1)
[2022-10-27 11:03] LABS: ALBUMIN 1.9 g/dl (3.4-5.0)
[2022-10-27 11:06] LABS: CREATININE 1.9 mg/dL (0.55-1.3)
[2022-10-27 11:07] LABS: BILIRUBIN,TOTAL 0.7 mg/dL (0.2-1); TOT PROT 4.3 g/dl (6.4-8.2)
[2022-10-27] MEDS ORDERED: EPOETIN ALFA-EPBX 10,000 UNIT/ML VIAL SQ ONE (11:30)
[2022-10-27] MEDS: ALBUMIN HUMAN 25% 12.5 GM/50 ML VIAL IV SCH ×3 (12:04→13:50)
[2022-10-27] MEDS: PANTOPRAZOLE 40 MG TABLET PO SCH (13:30)
[2022-10-27] MEDS: CYANOCOBALAMIN 1,000 MCG TABLET (FP) PO SCH (13:30)
[2022-10-27] MEDS: PYRIDOXINE HCL (B-6) 50 MG TABLET (FP) PO SCH (13:31)
[2022-10-27] MEDS: FERROUS SO4 325 MG TABLET (FP) PO SCH (13:31)
[2022-10-27] MEDS: FUROSEMIDE 40 MG TABLET (FP) PO SCH (13:31)
[2022-10-27] MEDS: FOLIC ACID 1 MG TABLET (FP) PO SCH (13:31)
[2022-10-27] MEDS: CHOLECALCIFEROL (VIT D3) 5000 UNITS (125 MCG) CAP PO SCH (13:31)
[2022-10-27] MEDS: SPIRONOLACTONE 25 MG TABLET PO SCH (13:31)
[2022-10-27] MEDS: POLYETHYLENE GLYCOL (HEALTHYLAX) 3350 17 GM PACKET PO SCH ×2 (13:31→21:52)
[2022-10-27] MEDS: GENTAMICIN SO4 0.1% TOP CREAM 15 GM/TUBE TP SCH ×2 (13:32→21:52)
[2022-10-27] MEDS: COLLAGENASE CLOSTRIDIUM HIST. 30 GRAMS TUBE TP SCH (13:32)
[2022-10-27] MEDS: MIRTAZAPINE 15 MG TABLET (FP) PO SCH (21:53)
[2022-10-28] MEDS: LEVOTHYROXINE NA 100 MCG TABLET (FP) PO SCH (06:24)
[2022-10-28] MEDS: NYSTATIN 500,000 UNITS/5 ML SUSPENSION PO SCH ×4 (06:24→23:52)
[2022-10-28] MEDS: LYTES/YERBA SANTA 240 ML BOTTLE MM SCH ×3 (06:25→17:25)
[2022-10-28] MEDS: SPIRONOLACTONE 25 MG TABLET PO SCH (09:21)
[2022-10-28] MEDS: FERROUS SO4 325 MG TABLET (FP) PO SCH (09:21)
[2022-10-28] MEDS: FOLIC ACID 1 MG TABLET (FP) PO SCH (09:21)
[2022-10-28] MEDS: POLYETHYLENE GLYCOL (HEALTHYLAX) 3350 17 GM PACKET PO SCH ×2 (09:21→22:16)
[2022-10-28] MEDS: LIPASE/PROTEASE/AMYLASE 6,000 UNIT CAPSULE PO SCH ×3 (09:22→17:25)
[2022-10-28] MEDS: PANTOPRAZOLE 40 MG TABLET PO SCH (09:22)
[2022-10-28] MEDS: CYANOCOBALAMIN 1,000 MCG TABLET (FP) PO SCH (09:22)
[2022-10-28] MEDS: FUROSEMIDE 40 MG TABLET (FP) PO SCH (09:22)
[2022-10-28] MEDS: CHOLECALCIFEROL (VIT D3) 5000 UNITS (125 MCG) CAP PO SCH (09:23)
[2022-10-28] MEDS: PYRIDOXINE HCL (B-6) 50 MG TABLET (FP) PO SCH (09:23)
[2022-10-28] MEDS: COLLAGENASE CLOSTRIDIUM HIST. 30 GRAMS TUBE TP SCH (09:24)
[2022-10-28] MEDS: GENTAMICIN SO4 0.1% TOP CREAM 15 GM/TUBE TP SCH (09:24)
[2022-10-28] MEDS ORDERED: SPIRONOLACTONE 25 MG TABLET PO SCH (11:42)
[2022-10-28] MEDS: MIRTAZAPINE 15 MG TABLET (FP) PO SCH (22:16)
[2022-10-29] MEDS: NYSTATIN 500,000 UNITS/5 ML SUSPENSION PO SCH ×3 (07:18→17:58)
[2022-10-29] MEDS: LEVOTHYROXINE NA 100 MCG TABLET (FP) PO SCH (07:18)
[2022-10-29] MEDS: LYTES/YERBA SANTA 240 ML BOTTLE MM SCH ×3 (07:19→18:01)
[2022-10-29] MEDS: LIPASE/PROTEASE/AMYLASE 6,000 UNIT CAPSULE PO SCH ×3 (08:28→18:01)
[2022-10-29] MEDS: FERROUS SO4 325 MG TABLET (FP) PO SCH (09:52)
[2022-10-29] MEDS: FUROSEMIDE 40 MG TABLET (FP) PO SCH (09:53)
[2022-10-29] MEDS: PANTOPRAZOLE 40 MG TABLET PO SCH (09:53)
[2022-10-29] MEDS: FOLIC ACID 1 MG TABLET (FP) PO SCH (09:53)
[2022-10-29] MEDS: PYRIDOXINE HCL (B-6) 50 MG TABLET (FP) PO SCH (09:53)
[2022-10-29] MEDS: CYANOCOBALAMIN 1,000 MCG TABLET (FP) PO SCH (09:53)
[2022-10-29] MEDS: SPIRONOLACTONE 25 MG TABLET PO SCH (09:53)
[2022-10-29] MEDS: CHOLECALCIFEROL (VIT D3) 5000 UNITS (125 MCG) CAP PO SCH (09:53)
[2022-10-29] MEDS: POLYETHYLENE GLYCOL (HEALTHYLAX) 3350 17 GM PACKET PO SCH ×2 (09:54→22:09)
[2022-10-29] MEDS: COLLAGENASE CLOSTRIDIUM HIST. 30 GRAMS TUBE TP SCH (09:54)
[2022-10-29] MEDS ORDERED: SODIUM CHLORIDE 250 ML IV PRN (11:05)
[2022-10-29 14:38] LABS: HEMATOCRIT 23.8 % (35.4-49); MCH 29.2 pg (25.7-33.7); MCHC 33.8 g/dl (32.0-35.9); MEAN CELL VOLUME 86.4 fl (80-96); MEAN PLT VOLUME 7.2 fl (7.5-11.1); PLATELET COUNT 164 10^3/uL (134-434); RBC 2.75 M/mm3 (4.00-5.60); RDW 17.5 % (11.9-15.9); WHITE BLOOD COUNT 8.3 K/mm3 (4.0-10.0)
[2022-10-29] MEDS: ALBUMIN HUMAN 25% 12.5 GM/50 ML VIAL IV SCH ×2 (15:00→15:30)
[2022-10-29] MEDS ORDERED: EPOETIN ALFA-EPBX 10,000 UNIT/ML VIAL IVPUSH ONE (15:00)
[2022-10-29 15:01] LABS: POTASSIUM 3.9 mmol/L (3.5-5.1)
[2022-10-29 15:02] LABS: CALCIUM 8.8 mg/dL (8.5-10.1)
[2022-10-29 15:03] LABS: BLOOD UREA NITROGEN 39.9 mg/dL (7-18)
[2022-10-29 15:06] LABS: CREATININE 1.7 mg/dL (0.55-1.3)
[2022-10-29] MEDS: MIRTAZAPINE 15 MG TABLET (FP) PO SCH (22:09)
[2022-10-30] MEDS: NYSTATIN 500,000 UNITS/5 ML SUSPENSION PO SCH ×4 (00:31→17:56)
[2022-10-30] MEDS: LEVOTHYROXINE NA 100 MCG TABLET (FP) PO SCH (06:10)
[2022-10-30] MEDS: LYTES/YERBA SANTA 240 ML BOTTLE MM SCH ×3 (06:31→17:56)
[2022-10-30] MEDS: PANTOPRAZOLE 40 MG TABLET PO SCH (09:16)
[2022-10-30] MEDS: FOLIC ACID 1 MG TABLET (FP) PO SCH (09:16)
[2022-10-30] MEDS: FUROSEMIDE 40 MG TABLET (FP) PO SCH (09:16)
[2022-10-30] MEDS: CYANOCOBALAMIN 1,000 MCG TABLET (FP) PO SCH (09:16)
[2022-10-30] MEDS: FERROUS SO4 325 MG TABLET (FP) PO SCH (09:16)
[2022-10-30] MEDS: SPIRONOLACTONE 25 MG TABLET PO SCH (09:16)
[2022-10-30] MEDS: CHOLECALCIFEROL (VIT D3) 5000 UNITS (125 MCG) CAP PO SCH (09:17)
[2022-10-30] MEDS: COLLAGENASE CLOSTRIDIUM HIST. 30 GRAMS TUBE TP SCH (09:17)
[2022-10-30] MEDS: LIPASE/PROTEASE/AMYLASE 6,000 UNIT CAPSULE PO SCH ×3 (09:17→17:56)
[2022-10-30] MEDS: PYRIDOXINE HCL (B-6) 50 MG TABLET (FP) PO SCH (09:17)
[2022-10-30] MEDS: POLYETHYLENE GLYCOL (HEALTHYLAX) 3350 17 GM PACKET PO SCH ×2 (09:17→22:04)
[2022-10-30] MEDS ORDERED: TAMSULOSIN HCL 0.4 MG CAP PO ONE (19:55)
[2022-10-30] MEDS: MIRTAZAPINE 15 MG TABLET (FP) PO SCH (21:56)
[2022-10-31] MEDS ORDERED: ACETAMINOPHEN 1000 MG/100 ML BAG IVPB ONE (00:15)
[2022-10-31] MEDS: NYSTATIN 500,000 UNITS/5 ML SUSPENSION PO SCH ×5 (00:24→23:52)
[2022-10-31] MEDS: LYTES/YERBA SANTA 240 ML BOTTLE MM SCH ×3 (06:15→17:15)
[2022-10-31] MEDS: LEVOTHYROXINE NA 100 MCG TABLET (FP) PO SCH (06:15)
[2022-10-31] MEDS ORDERED: SODIUM CHLORIDE 250 ML IV PRN (08:37)
[2022-10-31] MEDS ORDERED: EPOETIN ALFA-EPBX 10,000 UNIT/ML VIAL IVPUSH ONE (09:15)
[2022-10-31] MEDS: ALBUMIN HUMAN 25% 12.5 GM/50 ML VIAL IV SCH ×4 (10:00→11:58)
[2022-10-31] MEDS: LIPASE/PROTEASE/AMYLASE 6,000 UNIT CAPSULE PO SCH ×3 (11:30→17:15)
[2022-10-31] MEDS: POLYETHYLENE GLYCOL (HEALTHYLAX) 3350 17 GM PACKET PO SCH ×2 (11:31→22:27)
[2022-10-31] MEDS: CHOLECALCIFEROL (VIT D3) 5000 UNITS (125 MCG) CAP PO SCH (11:32)
[2022-10-31] MEDS ORDERED: LEVOTHYROXINE NA 100 MCG TABLET (FP) PO SCH (12:00)
[2022-10-31] MEDS: FOLIC ACID 1 MG TABLET (FP) PO SCH (13:15)
[2022-10-31] MEDS: PANTOPRAZOLE 40 MG TABLET PO SCH (13:15)
[2022-10-31] MEDS: TAMSULOSIN HCL 0.4 MG CAP PO SCH (13:15)
[2022-10-31] MEDS: FERROUS SO4 325 MG TABLET (FP) PO SCH (13:16)
[2022-10-31] MEDS: SPIRONOLACTONE 25 MG TABLET PO SCH (13:16)
[2022-10-31] MEDS: FUROSEMIDE 40 MG TABLET (FP) PO SCH (13:16)
[2022-10-31] MEDS: CYANOCOBALAMIN 1,000 MCG TABLET (FP) PO SCH (13:16)
[2022-10-31] MEDS: PYRIDOXINE HCL (B-6) 50 MG TABLET (FP) PO SCH (13:17)
[2022-10-31] MEDS: COLLAGENASE CLOSTRIDIUM HIST. 30 GRAMS TUBE TP SCH (13:18)
[2022-10-31] MEDS: MIRTAZAPINE 15 MG TABLET (FP) PO SCH (22:26)
[2022-11-01] MEDS: ACETAMINOPHEN 500 MG TABLET (FP) PO PRN ×2 (04:53→18:55)
[2022-11-01] MEDS: NYSTATIN 500,000 UNITS/5 ML SUSPENSION PO SCH ×3 (05:08→17:32)
[2022-11-01] MEDS: LEVOTHYROXINE 125 MCG, LEVOTHYROXINE 100 MCG PO SCH (06:44)
[2022-11-01] MEDS: LYTES/YERBA SANTA 240 ML BOTTLE MM SCH ×4 (06:46→17:31)
[2022-11-01] MEDS: FOLIC ACID 1 MG TABLET (FP) PO SCH (09:05)
[2022-11-01] MEDS: PYRIDOXINE HCL (B-6) 50 MG TABLET (FP) PO SCH (09:05)
[2022-11-01] MEDS: TAMSULOSIN HCL 0.4 MG CAP PO SCH (09:05)
[2022-11-01] MEDS: CYANOCOBALAMIN 1,000 MCG TABLET (FP) PO SCH (09:05)
[2022-11-01] MEDS: LIPASE/PROTEASE/AMYLASE 6,000 UNIT CAPSULE PO SCH ×3 (09:05→17:32)
[2022-11-01] MEDS: PANTOPRAZOLE 40 MG TABLET PO SCH (09:06)
[2022-11-01] MEDS: CHOLECALCIFEROL (VIT D3) 5000 UNITS (125 MCG) CAP PO SCH (09:06)
[2022-11-01] MEDS: POLYETHYLENE GLYCOL (HEALTHYLAX) 3350 17 GM PACKET PO SCH ×3 (09:06→22:05)
[2022-11-01] MEDS: FERROUS SO4 325 MG TABLET (FP) PO SCH (09:06)
[2022-11-01] MEDS: SPIRONOLACTONE 25 MG TABLET PO SCH (09:06)
[2022-11-01] MEDS: FUROSEMIDE 40 MG TABLET (FP) PO SCH (09:06)
[2022-11-01] MEDS: COLLAGENASE CLOSTRIDIUM HIST. 30 GRAMS TUBE TP SCH (09:08)
[2022-11-01 12:33] LABS: BASO % 0.5 % (0-2.0); EOS % 2.3 % (0-4.5); HEMATOCRIT 24.6 % (35.4-49); HEMOGLOBIN 8.3 GM/dL (11.7-16.9); MCH 28.8 pg (25.7-33.7); MCHC 33.6 g/dl (32.0-35.9); MEAN CELL VOLUME 85.7 fl (80-96); MEAN PLT VOLUME 6.7 fl (7.5-11.1); MONO % 6.9 % (3.8-10.2); NEUT % 66.3 % (42.8-82.8); PLATELET COUNT 170 10^3/uL (134-434); RBC 2.87 M/mm3 (4.00-5.60); RDW 17.8 % (11.9-15.9); WHITE BLOOD COUNT 5.2 K/mm3 (4.0-10.0)
[2022-11-01] MEDS: MIRTAZAPINE 15 MG TABLET (FP) PO SCH (22:05)
[2022-11-02] MEDS: NYSTATIN 500,000 UNITS/5 ML SUSPENSION PO SCH ×4 (00:29→17:37)
[2022-11-02] MEDS ORDERED: MEROPENEM 500 MG in DEXTROSE 5%-WATER 100 ML IVPB ONE (00:34)
[2022-11-02] MEDS: LEVOTHYROXINE 125 MCG, LEVOTHYROXINE 100 MCG PO SCH (07:14)
[2022-11-02] MEDS: LYTES/YERBA SANTA 240 ML BOTTLE MM SCH ×3 (07:14→18:00)
[2022-11-02 07:33] LABS: BASO % 0.5 % (0-2.0); EOS % 2.1 % (0-4.5); HEMATOCRIT 23.4 % (35.4-49); MCH 29.4 pg (25.7-33.7); MCHC 34.1 g/dl (32.0-35.9); MEAN PLT VOLUME 7.3 fl (7.5-11.1); MONO % 4.4 % (3.8-10.2); PLATELET COUNT 177 10^3/uL (134-434); RBC 2.73 M/mm3 (4.00-5.60); RDW 17.6 % (11.9-15.9); WHITE BLOOD COUNT 5.6 K/mm3 (4.0-10.0)
[2022-11-02 07:48] LABS: POTASSIUM 4.6 mmol/L (3.5-5.1)
[2022-11-02 07:51] LABS: ALBUMIN 2.1 g/dl (3.4-5.0); CALCIUM 9.2 mg/dL (8.5-10.1)
[2022-11-02 07:52] LABS: BLOOD UREA NITROGEN 31.9 mg/dL (7-18)
[2022-11-02 07:54] LABS: CREATININE 1.8 mg/dL (0.55-1.3)
[2022-11-02 07:55] LABS: PHOSPHOROUS 2.4 mg/dL (2.5-4.9)
[2022-11-02 07:56] LABS: BILIRUBIN,TOTAL 1.2 mg/dL (0.2-1); TOT PROT 4.7 g/dl (6.4-8.2)
[2022-11-02] MEDS: TAMSULOSIN HCL 0.4 MG CAP PO SCH (09:37)
[2022-11-02] MEDS: LIPASE/PROTEASE/AMYLASE 6,000 UNIT CAPSULE PO SCH ×3 (09:38→17:37)
[2022-11-02] MEDS: traMADol HCL 50 MG TABLET PO PRN ×2 (10:36→17:42)
[2022-11-02] MEDS: CYANOCOBALAMIN 1,000 MCG TABLET (FP) PO SCH (10:38)
[2022-11-02] MEDS: CHOLECALCIFEROL (VIT D3) 5000 UNITS (125 MCG) CAP PO SCH (10:38)
[2022-11-02] MEDS: FOLIC ACID 1 MG TABLET (FP) PO SCH (10:38)
[2022-11-02] MEDS: FERROUS SO4 325 MG TABLET (FP) PO SCH (10:38)
[2022-11-02] MEDS: SPIRONOLACTONE 25 MG TABLET PO SCH (10:38)
[2022-11-02] MEDS: PANTOPRAZOLE 40 MG TABLET PO SCH (10:38)
[2022-11-02] MEDS: PYRIDOXINE HCL (B-6) 50 MG TABLET (FP) PO SCH (10:39)
[2022-11-02] MEDS: FUROSEMIDE 40 MG TABLET (FP) PO SCH (10:41)
[2022-11-02] MEDS: CEFTAZIDIME/AVIBACTAM 0.94 GM in DEXTROSE 5%-WATER - 100 ML IVPB SCH ×2 (11:14→23:35)
[2022-11-02] MEDS: COLLAGENASE CLOSTRIDIUM HIST. 30 GRAMS TUBE TP SCH (11:21)
[2022-11-02] MEDS: POLYETHYLENE GLYCOL (HEALTHYLAX) 3350 17 GM PACKET PO SCH ×2 (11:22→23:33)
[2022-11-02] MEDS ORDERED: NAPH,MB-DB/K PH,MBDB POWDER PACKET PO ONE (11:28)
[2022-11-02 11:37] LABS: EPI CELLS 23 /uL (0-25.1); HYALINE CASTS 0 /uL (0-3.1); URINE APPEARANCE CLEAR; URINE BACTERIA 177 /uL (0-1359); URINE BILIRUBIN NEGATIVE (NEGATIVE); URINE COLOR DK YELLOW; URINE GLUCOSE (UA) NEGATIVE (NEGATIVE); URINE KETONE NEGATIVE (NEGATIVE); URINE LEUK ESTERASE TRACE (NEGATIVE); URINE NITRITE NEGATIVE (NEGATIVE); URINE PROTEIN 2+ (NEGATIVE); URINE UROBILINOGEN 0.2 mg/dL (0.2-1.0); URINE WBC 52 /uL (0-25.8)
[2022-11-02 12:05] LABS: URINE RBC 62.9 /uL (0-23.9)
[2022-11-02] MEDS: ACETAMINOPHEN 500 MG TABLET (FP) PO PRN (14:23)
[2022-11-02] MEDS: MIRTAZAPINE 15 MG TABLET (FP) PO SCH (23:33)
[2022-11-03] MEDS: NYSTATIN 500,000 UNITS/5 ML SUSPENSION PO SCH ×5 (00:48→23:08)
[2022-11-03] MEDS: LEVOTHYROXINE 125 MCG, LEVOTHYROXINE 100 MCG PO SCH (07:40)
[2022-11-03] MEDS: LYTES/YERBA SANTA 240 ML BOTTLE MM SCH ×3 (07:41→18:01)
[2022-11-03] MEDS ORDERED: INSULIN (NOVOLOG) ASPART 100 UNITS/ML 10ML VIAL ONE (07:56)
[2022-11-03] MEDS ORDERED: EPOETIN ALFA 10,000 UNIT/1 ML VIAL IVPUSH ONE (10:00)
[2022-11-03] MEDS: LIPASE/PROTEASE/AMYLASE 6,000 UNIT CAPSULE PO SCH ×3 (12:45→18:01)
[2022-11-03] MEDS: FOLIC ACID 1 MG TABLET (FP) PO SCH (12:46)
[2022-11-03] MEDS: FUROSEMIDE 40 MG TABLET (FP) PO SCH (12:46)
[2022-11-03] MEDS: FERROUS SO4 325 MG TABLET (FP) PO SCH (12:46)
[2022-11-03] MEDS: PANTOPRAZOLE 40 MG TABLET PO SCH (12:46)
[2022-11-03] MEDS: SPIRONOLACTONE 25 MG TABLET PO SCH (12:46)
[2022-11-03] MEDS: CYANOCOBALAMIN 1,000 MCG TABLET (FP) PO SCH (12:46)
[2022-11-03] MEDS: CHOLECALCIFEROL (VIT D3) 5000 UNITS (125 MCG) CAP PO SCH (12:47)
[2022-11-03] MEDS: CEFTAZIDIME/AVIBACTAM 0.94 GM in DEXTROSE 5%-WATER - 100 ML IVPB SCH ×2 (12:47→23:08)
[2022-11-03] MEDS: PYRIDOXINE HCL (B-6) 50 MG TABLET (FP) PO SCH (12:47)
[2022-11-03] MEDS: COLLAGENASE CLOSTRIDIUM HIST. 30 GRAMS TUBE TP SCH (12:49)
[2022-11-03] MEDS: POLYETHYLENE GLYCOL (HEALTHYLAX) 3350 17 GM PACKET PO SCH ×3 (12:49→23:19)
[2022-11-03] MEDS: traMADol HCL 50 MG TABLET PO PRN ×2 (12:55→23:29)
[2022-11-03] MEDS: TAMSULOSIN HCL 0.4 MG CAP PO SCH (17:59)
[2022-11-03] MEDS: MIRTAZAPINE 15 MG TABLET (FP) PO SCH (23:08)
[2022-11-04] MEDS: LEVOTHYROXINE 125 MCG, LEVOTHYROXINE 100 MCG PO SCH (07:44)
[2022-11-04] MEDS: NYSTATIN 500,000 UNITS/5 ML SUSPENSION PO SCH ×3 (07:44→18:37)
[2022-11-04] MEDS: LYTES/YERBA SANTA 240 ML BOTTLE MM SCH ×3 (07:46→18:37)
[2022-11-04] MEDS: FUROSEMIDE 40 MG TABLET (FP) PO SCH (10:01)
[2022-11-04] MEDS: LIPASE/PROTEASE/AMYLASE 6,000 UNIT CAPSULE PO SCH ×3 (10:01→18:37)
[2022-11-04] MEDS: TAMSULOSIN HCL 0.4 MG CAP PO SCH (10:01)
[2022-11-04] MEDS: PANTOPRAZOLE 40 MG TABLET PO SCH (10:01)
[2022-11-04] MEDS: FERROUS SO4 325 MG TABLET (FP) PO SCH (10:02)
[2022-11-04] MEDS: CHOLECALCIFEROL (VIT D3) 5000 UNITS (125 MCG) CAP PO SCH (10:02)
[2022-11-04] MEDS: SPIRONOLACTONE 25 MG TABLET PO SCH (10:02)
[2022-11-04] MEDS: POLYETHYLENE GLYCOL (HEALTHYLAX) 3350 17 GM PACKET PO SCH ×2 (10:02→22:32)
[2022-11-04] MEDS: CYANOCOBALAMIN 1,000 MCG TABLET (FP) PO SCH (10:02)
[2022-11-04] MEDS: FOLIC ACID 1 MG TABLET (FP) PO SCH (10:02)
[2022-11-04] MEDS: COLLAGENASE CLOSTRIDIUM HIST. 30 GRAMS TUBE TP SCH (10:03)
[2022-11-04] MEDS: PYRIDOXINE HCL (B-6) 50 MG TABLET (FP) PO SCH (10:10)
[2022-11-04] MEDS: CEFTAZIDIME/AVIBACTAM 0.94 GM in DEXTROSE 5%-WATER - 100 ML IVPB SCH (10:46)
[2022-11-04] MEDS: traMADol HCL 50 MG TABLET PO PRN ×2 (12:25→22:34)
[2022-11-04] MEDS: MEROPENEM 500 MG in DEXTROSE 5%-WATER 100 ML IVPB SCH (18:37)
[2022-11-04 20:03] LABS: BF WBC & OTHER NUCLEATED CELLS 4166 /mm3
[2022-11-04 20:29] LABS: BODY FLUID MONOCYTE 23 %
[2022-11-04] MEDS: MIRTAZAPINE 15 MG TABLET (FP) PO SCH (22:33)
[2022-11-05] MEDS: NYSTATIN 500,000 UNITS/5 ML SUSPENSION PO SCH ×4 (00:50→17:19)
[2022-11-05] MEDS: MEROPENEM 500 MG in DEXTROSE 5%-WATER 100 ML IVPB SCH ×4 (03:28→17:19)
[2022-11-05] MEDS: LEVOTHYROXINE 125 MCG, LEVOTHYROXINE 100 MCG PO SCH (06:15)
[2022-11-05] MEDS: LYTES/YERBA SANTA 240 ML BOTTLE MM SCH ×4 (06:16→17:19)
[2022-11-05] MEDS: TAMSULOSIN HCL 0.4 MG CAP PO SCH (07:56)
[2022-11-05] MEDS: LIPASE/PROTEASE/AMYLASE 6,000 UNIT CAPSULE PO SCH ×3 (07:56→17:19)
[2022-11-05] MEDS ORDERED: SODIUM CHLORIDE 250 ML IV PRN (08:25)
[2022-11-05] MEDS: ALBUMIN HUMAN 25% 12.5 GM/50 ML VIAL IV SCH ×4 (08:35→10:05)
[2022-11-05] MEDS ORDERED: EPOETIN ALFA-EPBX 4,000 UNIT/ML VIAL SQ ONE (09:00)
[2022-11-05 09:20] LABS: BASO % 0.5 % (0-2.0); EOS % 6.8 % (0-4.5); HEMATOCRIT 22.2 % (35.4-49); HEMOGLOBIN 7.5 GM/dL (11.7-16.9); LYMPH % 36.3 % (8-40); MCH 28.9 pg (25.7-33.7); MCHC 33.8 g/dl (32.0-35.9); MEAN CELL VOLUME 85.5 fl (80-96); MONO % 6.8 % (3.8-10.2); NEUT % 49.6 % (42.8-82.8); PLATELET COUNT 172 10^3/uL (134-434); RBC 2.59 M/mm3 (4.00-5.60); RDW 17.5 % (11.9-15.9); WHITE BLOOD COUNT 4.7 K/mm3 (4.0-10.0)
[2022-11-05] MEDS: POLYETHYLENE GLYCOL (HEALTHYLAX) 3350 17 GM PACKET PO SCH ×2 (09:28→22:24)
[2022-11-05] MEDS: FOLIC ACID 1 MG TABLET (FP) PO SCH ×2 (09:28→12:23)
[2022-11-05] MEDS: FERROUS SO4 325 MG TABLET (FP) PO SCH ×2 (09:28→12:22)
[2022-11-05] MEDS: SPIRONOLACTONE 25 MG TABLET PO SCH ×2 (09:28→12:22)
[2022-11-05] MEDS: FUROSEMIDE 40 MG TABLET (FP) PO SCH ×3 (09:28→12:24)
[2022-11-05] MEDS: PANTOPRAZOLE 40 MG TABLET PO SCH ×2 (09:29→12:22)
[2022-11-05] MEDS: CYANOCOBALAMIN 1,000 MCG TABLET (FP) PO SCH ×2 (09:29→12:23)
[2022-11-05] MEDS: COLLAGENASE CLOSTRIDIUM HIST. 30 GRAMS TUBE TP SCH ×2 (09:29→12:25)
[2022-11-05] MEDS: PYRIDOXINE HCL (B-6) 50 MG TABLET (FP) PO SCH ×2 (09:29→12:23)
[2022-11-05] MEDS: CHOLECALCIFEROL (VIT D3) 5000 UNITS (125 MCG) CAP PO SCH ×2 (09:29→12:23)
[2022-11-05 09:40] LABS: POTASSIUM 3.3 mmol/L (3.5-5.1)
[2022-11-05 09:46] LABS: CALCIUM 9.3 mg/dL (8.5-10.1)
[2022-11-05 09:47] LABS: ALBUMIN 1.9 g/dl (3.4-5.0); BLOOD UREA NITROGEN 31.7 mg/dL (7-18)
[2022-11-05 09:50] LABS: CREATININE 1.7 mg/dL (0.55-1.3)
[2022-11-05 09:51] LABS: TOT PROT 4.4 g/dl (6.4-8.2)
[2022-11-05 09:52] LABS: BILIRUBIN,TOTAL 0.7 mg/dL (0.2-1)
[2022-11-05 10:13] LABS: INR 1.12 (0.83-1.09)
[2022-11-05] MEDS: traMADol HCL 50 MG TABLET PO PRN ×2 (13:38→22:38)
[2022-11-05] MEDS: MIRTAZAPINE 15 MG TABLET (FP) PO SCH (22:25)
[2022-11-05] MEDS: ACETAMINOPHEN 500 MG TABLET (FP) PO PRN (22:26)
[2022-11-06] MEDS: NYSTATIN 500,000 UNITS/5 ML SUSPENSION PO SCH ×6 (01:51→23:31)
[2022-11-06] MEDS: MEROPENEM 500 MG in DEXTROSE 5%-WATER 100 ML IVPB SCH ×3 (01:52→17:47)
[2022-11-06] MEDS: LYTES/YERBA SANTA 240 ML BOTTLE MM SCH ×3 (06:13→17:47)
[2022-11-06] MEDS: LEVOTHYROXINE NA 125 MCG TABLET (FP) PO SCH (06:13)
[2022-11-06] MEDS: LIPASE/PROTEASE/AMYLASE 6,000 UNIT CAPSULE PO SCH ×3 (08:49→17:47)
[2022-11-06] MEDS: TAMSULOSIN HCL 0.4 MG CAP PO SCH (09:49)
[2022-11-06] MEDS: PANTOPRAZOLE 40 MG TABLET PO SCH (09:50)
[2022-11-06] MEDS: POLYETHYLENE GLYCOL (HEALTHYLAX) 3350 17 GM PACKET PO SCH ×2 (09:50→22:51)
[2022-11-06] MEDS: CYANOCOBALAMIN 1,000 MCG TABLET (FP) PO SCH (09:50)
[2022-11-06] MEDS: CHOLECALCIFEROL (VIT D3) 5000 UNITS (125 MCG) CAP PO SCH (09:50)
[2022-11-06] MEDS: FERROUS SO4 325 MG TABLET (FP) PO SCH (09:50)
[2022-11-06] MEDS: traMADol HCL 50 MG TABLET PO PRN ×2 (09:50→21:43)
[2022-11-06] MEDS: SPIRONOLACTONE 25 MG TABLET PO SCH (09:50)
[2022-11-06] MEDS: FOLIC ACID 1 MG TABLET (FP) PO SCH (09:50)
[2022-11-06] MEDS: FUROSEMIDE 40 MG TABLET (FP) PO SCH (09:50)
[2022-11-06] MEDS: COLLAGENASE CLOSTRIDIUM HIST. 30 GRAMS TUBE TP SCH (09:51)
[2022-11-06] MEDS: PYRIDOXINE HCL (B-6) 50 MG TABLET (FP) PO SCH (10:34)
[2022-11-06 13:09] LABS: BODY FLUID ALBUMIN 1.3 g/dL (Not Estab.)
[2022-11-06] MEDS: MIRTAZAPINE 15 MG TABLET (FP) PO SCH (22:56)
[2022-11-07] MEDS: MEROPENEM 500 MG in DEXTROSE 5%-WATER 100 ML IVPB SCH ×3 (01:30→18:32)
[2022-11-07] MEDS: NYSTATIN 500,000 UNITS/5 ML SUSPENSION PO SCH ×3 (06:17→18:32)
[2022-11-07] MEDS: LEVOTHYROXINE NA 125 MCG TABLET (FP) PO SCH (06:17)
[2022-11-07] MEDS: LYTES/YERBA SANTA 240 ML BOTTLE MM SCH ×3 (06:22→18:32)
[2022-11-07] MEDS ORDERED: SODIUM CHLORIDE 250 ML IV PRN (08:00)
[2022-11-07] MEDS ORDERED: EPOETIN ALFA-EPBX 10,000 UNIT/ML VIAL SQ ONE (08:00)
[2022-11-07] MEDS: LIPASE/PROTEASE/AMYLASE 6,000 UNIT CAPSULE PO SCH ×3 (08:35→18:32)
[2022-11-07] MEDS: TAMSULOSIN HCL 0.4 MG CAP PO SCH (08:36)
[2022-11-07 09:45] LABS: HEMATOCRIT 22.8 % (35.4-49); HEMOGLOBIN 7.7 GM/dL (11.7-16.9); MCH 28.3 pg (25.7-33.7); MCHC 33.7 g/dl (32.0-35.9); MEAN PLT VOLUME 6.4 fl (7.5-11.1); PLATELET COUNT 206 10^3/uL (134-434); RBC 2.72 M/mm3 (4.00-5.60); RDW 17.5 % (11.9-15.9); WHITE BLOOD COUNT 5.7 K/mm3 (4.0-10.0)
[2022-11-07 10:17] LABS: POTASSIUM 3.4 mmol/L (3.5-5.1)
[2022-11-07 10:20] LABS: ALBUMIN 2.1 g/dl (3.4-5.0); CALCIUM 9.5 mg/dL (8.5-10.1)
[2022-11-07 10:21] LABS: BLOOD UREA NITROGEN 24.1 mg/dL (7-18)
[2022-11-07 10:23] LABS: CREATININE 1.2 mg/dL (0.55-1.3)
[2022-11-07 10:25] LABS: BILIRUBIN,TOTAL 0.7 mg/dL (0.2-1); TOT PROT 4.6 g/dl (6.4-8.2)
[2022-11-07] MEDS: POLYETHYLENE GLYCOL (HEALTHYLAX) 3350 17 GM PACKET PO SCH ×2 (10:30→21:26)
[2022-11-07] MEDS: FUROSEMIDE 40 MG TABLET (FP) PO SCH (10:30)
[2022-11-07] MEDS: SPIRONOLACTONE 25 MG TABLET PO SCH (10:30)
[2022-11-07] MEDS: COLLAGENASE CLOSTRIDIUM HIST. 30 GRAMS TUBE TP SCH (12:07)
[2022-11-07] MEDS: CYANOCOBALAMIN 1,000 MCG TABLET (FP) PO SCH (13:17)
[2022-11-07] MEDS: PYRIDOXINE HCL (B-6) 50 MG TABLET (FP) PO SCH (13:17)
[2022-11-07] MEDS: FOLIC ACID 1 MG TABLET (FP) PO SCH (13:17)
[2022-11-07] MEDS: FERROUS SO4 325 MG TABLET (FP) PO SCH (13:17)
[2022-11-07] MEDS: PANTOPRAZOLE 40 MG TABLET PO SCH (13:17)
[2022-11-07] MEDS: CHOLECALCIFEROL (VIT D3) 5000 UNITS (125 MCG) CAP PO SCH (13:18)
[2022-11-07] MEDS: MIRTAZAPINE 15 MG TABLET (FP) PO SCH (21:05)
[2022-11-07] MEDS: traMADol HCL 50 MG TABLET PO PRN (21:26)
[2022-11-08] MEDS: NYSTATIN 500,000 UNITS/5 ML SUSPENSION PO SCH ×4 (00:09→17:48)
[2022-11-08] MEDS: MEROPENEM 500 MG in DEXTROSE 5%-WATER 100 ML IVPB SCH ×3 (01:19→17:48)
[2022-11-08] MEDS: LYTES/YERBA SANTA 240 ML BOTTLE MM SCH ×3 (06:32→17:44)
[2022-11-08] MEDS: LEVOTHYROXINE NA 125 MCG TABLET (FP) PO SCH (06:32)
[2022-11-08] MEDS: TAMSULOSIN HCL 0.4 MG CAP PO SCH (08:45)
[2022-11-08] MEDS: LIPASE/PROTEASE/AMYLASE 6,000 UNIT CAPSULE PO SCH ×3 (08:46→18:02)
[2022-11-08] MEDS: PANTOPRAZOLE 40 MG TABLET PO SCH (09:30)
[2022-11-08] MEDS: FERROUS SO4 325 MG TABLET (FP) PO SCH (09:30)
[2022-11-08] MEDS: FUROSEMIDE 40 MG TABLET (FP) PO SCH (09:30)
[2022-11-08] MEDS: SPIRONOLACTONE 25 MG TABLET PO SCH (09:30)
[2022-11-08] MEDS: FOLIC ACID 1 MG TABLET (FP) PO SCH (09:30)
[2022-11-08] MEDS: CYANOCOBALAMIN 1,000 MCG TABLET (FP) PO SCH (09:30)
[2022-11-08] MEDS: POLYETHYLENE GLYCOL (HEALTHYLAX) 3350 17 GM PACKET PO SCH ×2 (09:31→22:31)
[2022-11-08] MEDS: COLLAGENASE CLOSTRIDIUM HIST. 30 GRAMS TUBE TP SCH (09:32)
[2022-11-08] MEDS: PYRIDOXINE HCL (B-6) 50 MG TABLET (FP) PO SCH (09:33)
[2022-11-08] MEDS: CHOLECALCIFEROL (VIT D3) 5000 UNITS (125 MCG) CAP PO SCH (09:33)
[2022-11-08] MEDS: ACETAMINOPHEN 500 MG TABLET (FP) PO PRN (14:35)
[2022-11-08] MEDS: MIRTAZAPINE 15 MG TABLET (FP) PO SCH (22:31)
[2022-11-09] MEDS: NYSTATIN 500,000 UNITS/5 ML SUSPENSION PO SCH ×4 (00:22→17:03)
[2022-11-09] MEDS: MEROPENEM 500 MG in DEXTROSE 5%-WATER 100 ML IVPB SCH ×3 (01:22→17:03)
[2022-11-09] MEDS: traMADol HCL 50 MG TABLET PO PRN ×4 (03:14→22:08)
[2022-11-09] MEDS: LEVOTHYROXINE NA 125 MCG TABLET (FP) PO SCH (06:04)
[2022-11-09] MEDS: LYTES/YERBA SANTA 240 ML BOTTLE MM SCH ×3 (06:05→17:01)
[2022-11-09] MEDS: LIPASE/PROTEASE/AMYLASE 6,000 UNIT CAPSULE PO SCH ×3 (09:33→17:01)
[2022-11-09] MEDS: CHOLECALCIFEROL (VIT D3) 5000 UNITS (125 MCG) CAP PO SCH (09:34)
[2022-11-09] MEDS: POLYETHYLENE GLYCOL (HEALTHYLAX) 3350 17 GM PACKET PO SCH ×3 (09:34→22:04)
[2022-11-09] MEDS: PYRIDOXINE HCL (B-6) 50 MG TABLET (FP) PO SCH (09:34)
[2022-11-09] MEDS: FERROUS SO4 325 MG TABLET (FP) PO SCH (09:36)
[2022-11-09] MEDS: FUROSEMIDE 40 MG TABLET (FP) PO SCH (09:36)
[2022-11-09] MEDS: PANTOPRAZOLE 40 MG TABLET PO SCH (09:36)
[2022-11-09] MEDS: CYANOCOBALAMIN 1,000 MCG TABLET (FP) PO SCH (09:36)
[2022-11-09] MEDS: TAMSULOSIN HCL 0.4 MG CAP PO SCH (09:36)
[2022-11-09] MEDS: SPIRONOLACTONE 25 MG TABLET PO SCH (09:36)
[2022-11-09] MEDS: FOLIC ACID 1 MG TABLET (FP) PO SCH (09:36)
[2022-11-09] MEDS: COLLAGENASE CLOSTRIDIUM HIST. 30 GRAMS TUBE TP SCH (11:00)
[2022-11-09] MEDS: MIRTAZAPINE 15 MG TABLET (FP) PO SCH (22:08)
[2022-11-10] MEDS: NYSTATIN 500,000 UNITS/5 ML SUSPENSION PO SCH ×4 (00:53→18:00)
[2022-11-10] MEDS: MEROPENEM 500 MG in DEXTROSE 5%-WATER 100 ML IVPB SCH ×3 (01:23→17:59)
[2022-11-10] MEDS: LEVOTHYROXINE NA 125 MCG TABLET (FP) PO SCH (06:22)
[2022-11-10] MEDS: LYTES/YERBA SANTA 240 ML BOTTLE MM SCH ×3 (06:23→17:58)
[2022-11-10] MEDS ORDERED: SODIUM CHLORIDE 250 ML IV PRN (07:36)
[2022-11-10] MEDS ORDERED: EPOETIN ALFA-EPBX 10,000 UNIT/ML VIAL IVPUSH ONE (08:00)
[2022-11-10 09:06] LABS: HEMOGLOBIN 9.6 GM/dL (11.7-16.9); MCH 29.3 pg (25.7-33.7); MCHC 34.2 g/dl (32.0-35.9); MEAN CELL VOLUME 85.8 fl (80-96); MEAN PLT VOLUME 7.2 fl (7.5-11.1); PLATELET COUNT 245 10^3/uL (134-434); RBC 3.26 M/mm3 (4.00-5.60); RDW 16.8 % (11.9-15.9); WHITE BLOOD COUNT 6.7 K/mm3 (4.0-10.0)
[2022-11-10 10:17] LABS: ANISOCYTOSIS 1+; MACROCYTOSIS 0; OVALOCYTE 1+; TEAR DROP CELLS 1+
[2022-11-10] MEDS: LIPASE/PROTEASE/AMYLASE 6,000 UNIT CAPSULE PO SCH ×3 (11:37→17:58)
[2022-11-10] MEDS: PYRIDOXINE HCL (B-6) 50 MG TABLET (FP) PO SCH (11:38)
[2022-11-10] MEDS: FOLIC ACID 1 MG TABLET (FP) PO SCH (11:38)
[2022-11-10] MEDS: CHOLECALCIFEROL (VIT D3) 5000 UNITS (125 MCG) CAP PO SCH (11:38)
[2022-11-10] MEDS: CYANOCOBALAMIN 1,000 MCG TABLET (FP) PO SCH (11:38)
[2022-11-10] MEDS: FERROUS SO4 325 MG TABLET (FP) PO SCH (11:39)
[2022-11-10] MEDS: traMADol HCL 50 MG TABLET PO PRN ×2 (12:37→20:04)
[2022-11-10] MEDS: TAMSULOSIN HCL 0.4 MG CAP PO SCH (12:37)
[2022-11-10] MEDS: FUROSEMIDE 40 MG TABLET (FP) PO SCH (12:38)
[2022-11-10] MEDS: POLYETHYLENE GLYCOL (HEALTHYLAX) 3350 17 GM PACKET PO SCH ×2 (12:38→22:45)
[2022-11-10] MEDS: PANTOPRAZOLE 40 MG TABLET PO SCH (12:38)
[2022-11-10] MEDS: SPIRONOLACTONE 25 MG TABLET PO SCH (12:38)
[2022-11-10] MEDS: COLLAGENASE CLOSTRIDIUM HIST. 30 GRAMS TUBE TP SCH (14:45)
[2022-11-10] MEDS: MIRTAZAPINE 15 MG TABLET (FP) PO SCH (22:45)
[2022-11-11] MEDS: NYSTATIN 500,000 UNITS/5 ML SUSPENSION PO SCH ×5 (00:10→23:44)
[2022-11-11] MEDS: MEROPENEM 500 MG in DEXTROSE 5%-WATER 100 ML IVPB SCH ×3 (01:47→18:19)
[2022-11-11] MEDS: LYTES/YERBA SANTA 240 ML BOTTLE MM SCH ×3 (06:25→18:19)
[2022-11-11] MEDS: LEVOTHYROXINE NA 125 MCG TABLET (FP) PO SCH (06:25)
[2022-11-11] MEDS: traMADol HCL 50 MG TABLET PO PRN ×3 (06:26→22:50)
[2022-11-11] MEDS: LIPASE/PROTEASE/AMYLASE 6,000 UNIT CAPSULE PO SCH ×3 (09:46→18:19)
[2022-11-11] MEDS: POLYETHYLENE GLYCOL (HEALTHYLAX) 3350 17 GM PACKET PO SCH ×2 (09:48→21:58)
[2022-11-11] MEDS: TAMSULOSIN HCL 0.4 MG CAP PO SCH (09:48)
[2022-11-11] MEDS: CYANOCOBALAMIN 1,000 MCG TABLET (FP) PO SCH (09:48)
[2022-11-11] MEDS: SPIRONOLACTONE 25 MG TABLET PO SCH (09:48)
[2022-11-11] MEDS: PANTOPRAZOLE 40 MG TABLET PO SCH (09:48)
[2022-11-11] MEDS: FOLIC ACID 1 MG TABLET (FP) PO SCH (09:48)
[2022-11-11] MEDS: FUROSEMIDE 40 MG TABLET (FP) PO SCH (09:48)
[2022-11-11] MEDS: COLLAGENASE CLOSTRIDIUM HIST. 30 GRAMS TUBE TP SCH (09:49)
[2022-11-11] MEDS: CHOLECALCIFEROL (VIT D3) 5000 UNITS (125 MCG) CAP PO SCH (09:49)
[2022-11-11] MEDS: PYRIDOXINE HCL (B-6) 50 MG TABLET (FP) PO SCH (09:49)
[2022-11-11] MEDS: FERROUS SO4 325 MG TABLET (FP) PO SCH (11:24)
[2022-11-11] MEDS: MIRTAZAPINE 15 MG TABLET (FP) PO SCH (21:58)
[2022-11-12] MEDS: MEROPENEM 500 MG in DEXTROSE 5%-WATER 100 ML IVPB SCH ×4 (03:45→18:17)
[2022-11-12] MEDS: NYSTATIN 500,000 UNITS/5 ML SUSPENSION PO SCH ×3 (05:33→18:17)
[2022-11-12] MEDS: LEVOTHYROXINE NA 125 MCG TABLET (FP) PO SCH (06:11)
[2022-11-12] MEDS: LYTES/YERBA SANTA 240 ML BOTTLE MM SCH ×3 (06:11→18:52)
[2022-11-12] MEDS ORDERED: SODIUM CHLORIDE 250 ML IV PRN (07:28)
[2022-11-12 09:59] LABS: HEMATOCRIT 27.2 % (35.4-49); HEMOGLOBIN 9.3 GM/dL (11.7-16.9); MCH 28.8 pg (25.7-33.7); MCHC 34.1 g/dl (32.0-35.9); MEAN CELL VOLUME 84.5 fl (80-96); MEAN PLT VOLUME 6.5 fl (7.5-11.1); PLATELET COUNT 246 10^3/uL (134-434); RBC 3.21 M/mm3 (4.00-5.60); RDW 17.4 % (11.9-15.9); WHITE BLOOD COUNT 6.6 K/mm3 (4.0-10.0)
[2022-11-12] MEDS ORDERED: EPOETIN ALFA-EPBX 4,000 UNIT/ML VIAL IVPUSH ONE (10:00)
[2022-11-12] MEDS: LIPASE/PROTEASE/AMYLASE 6,000 UNIT CAPSULE PO SCH ×3 (10:17→19:34)
[2022-11-12] MEDS: TAMSULOSIN HCL 0.4 MG CAP PO SCH (10:17)
[2022-11-12] MEDS: FUROSEMIDE 40 MG TABLET (FP) PO SCH (10:18)
[2022-11-12] MEDS: POLYETHYLENE GLYCOL (HEALTHYLAX) 3350 17 GM PACKET PO SCH ×2 (10:18→22:11)
[2022-11-12] MEDS: FOLIC ACID 1 MG TABLET (FP) PO SCH (10:18)
[2022-11-12] MEDS: FERROUS SO4 325 MG TABLET (FP) PO SCH (10:18)
[2022-11-12] MEDS: SPIRONOLACTONE 25 MG TABLET PO SCH (10:18)
[2022-11-12 10:19] LABS: POTASSIUM 3.7 mmol/L (3.5-5.1)
[2022-11-12] MEDS: PANTOPRAZOLE 40 MG TABLET PO SCH (10:19)
[2022-11-12] MEDS: CYANOCOBALAMIN 1,000 MCG TABLET (FP) PO SCH (10:19)
[2022-11-12] MEDS: PYRIDOXINE HCL (B-6) 50 MG TABLET (FP) PO SCH (10:19)
[2022-11-12] MEDS: CHOLECALCIFEROL (VIT D3) 5000 UNITS (125 MCG) CAP PO SCH (10:20)
[2022-11-12 10:21] LABS: CALCIUM 9.5 mg/dL (8.5-10.1)
[2022-11-12 10:22] LABS: ALBUMIN 2.2 g/dl (3.4-5.0); BLOOD UREA NITROGEN 28.6 mg/dL (7-18)
[2022-11-12 10:25] LABS: CREATININE 1.6 mg/dL (0.55-1.3)
[2022-11-12 10:26] LABS: BILIRUBIN,TOTAL 0.8 mg/dL (0.2-1); TOT PROT 4.3 g/dl (6.4-8.2)
[2022-11-12] MEDS: COLLAGENASE CLOSTRIDIUM HIST. 30 GRAMS TUBE TP SCH (14:59)
[2022-11-12] MEDS: traMADol HCL 50 MG TABLET PO PRN ×2 (15:37→20:30)
[2022-11-12] MEDS: MIRTAZAPINE 15 MG TABLET (FP) PO SCH (22:11)
[2022-11-13] MEDS: MEROPENEM 500 MG in DEXTROSE 5%-WATER 100 ML IVPB SCH ×3 (01:35→17:20)
[2022-11-13] MEDS: NYSTATIN 500,000 UNITS/5 ML SUSPENSION PO SCH ×4 (01:36→17:28)
[2022-11-13] MEDS: LYTES/YERBA SANTA 240 ML BOTTLE MM SCH ×3 (06:18→17:27)
[2022-11-13] MEDS: LEVOTHYROXINE NA 125 MCG TABLET (FP) PO SCH (06:18)
[2022-11-13] MEDS: TAMSULOSIN HCL 0.4 MG CAP PO SCH (09:13)
[2022-11-13] MEDS: SPIRONOLACTONE 25 MG TABLET PO SCH (09:13)
[2022-11-13] MEDS: PANTOPRAZOLE 40 MG TABLET PO SCH (09:13)
[2022-11-13] MEDS: FERROUS SO4 325 MG TABLET (FP) PO SCH (09:13)
[2022-11-13] MEDS: LIPASE/PROTEASE/AMYLASE 6,000 UNIT CAPSULE PO SCH ×3 (09:13→17:28)
[2022-11-13] MEDS: CYANOCOBALAMIN 1,000 MCG TABLET (FP) PO SCH (09:13)
[2022-11-13] MEDS: FOLIC ACID 1 MG TABLET (FP) PO SCH (09:13)
[2022-11-13] MEDS: FUROSEMIDE 40 MG TABLET (FP) PO SCH (09:13)
[2022-11-13] MEDS: POLYETHYLENE GLYCOL (HEALTHYLAX) 3350 17 GM PACKET PO SCH ×2 (09:14→22:12)
[2022-11-13] MEDS: COLLAGENASE CLOSTRIDIUM HIST. 30 GRAMS TUBE TP SCH (09:15)
[2022-11-13] MEDS: CHOLECALCIFEROL (VIT D3) 5000 UNITS (125 MCG) CAP PO SCH (09:15)
[2022-11-13] MEDS: PYRIDOXINE HCL (B-6) 50 MG TABLET (FP) PO SCH (09:15)
[2022-11-13] MEDS: traMADol HCL 50 MG TABLET PO PRN ×2 (12:02→22:43)
[2022-11-13] MEDS ORDERED: SODIUM CHLORIDE 250 ML IV PRN (19:20)
[2022-11-13] MEDS: MIRTAZAPINE 15 MG TABLET (FP) PO SCH (22:12)
[2022-11-14] MEDS: NYSTATIN 500,000 UNITS/5 ML SUSPENSION PO SCH ×3 (00:14→12:12)
[2022-11-14] MEDS: MEROPENEM 500 MG in DEXTROSE 5%-WATER 100 ML IVPB SCH ×2 (02:02→12:12)
[2022-11-14] MEDS: LEVOTHYROXINE NA 125 MCG TABLET (FP) PO SCH (06:07)
[2022-11-14] MEDS: LYTES/YERBA SANTA 240 ML BOTTLE MM SCH ×2 (06:08→12:24)
[2022-11-14] MEDS: traMADol HCL 50 MG TABLET PO PRN ×2 (06:13→12:13)
[2022-11-14] MEDS: TAMSULOSIN HCL 0.4 MG CAP PO SCH ×2 (08:23→12:12)
[2022-11-14] MEDS: LIPASE/PROTEASE/AMYLASE 6,000 UNIT CAPSULE PO SCH ×2 (08:23→12:13)
[2022-11-14] MEDS: POLYETHYLENE GLYCOL (HEALTHYLAX) 3350 17 GM PACKET PO SCH (09:00)
[2022-11-14] MEDS ORDERED: EPOETIN ALFA-EPBX 4,000 UNIT/ML VIAL IVPUSH ONE (09:00)
[2022-11-14 09:21] LABS: HEMATOCRIT 27.7 % (35.4-49); HEMOGLOBIN 9.4 GM/dL (11.7-16.9); MCH 28.8 pg (25.7-33.7); MCHC 33.8 g/dl (32.0-35.9); MEAN CELL VOLUME 85.2 fl (80-96); MEAN PLT VOLUME 6.6 fl (7.5-11.1); PLATELET COUNT 260 10^3/uL (134-434); RBC 3.25 M/mm3 (4.00-5.60); RDW 17.5 % (11.9-15.9); WHITE BLOOD COUNT 6.7 K/mm3 (4.0-10.0)
[2022-11-14 09:24] VITALS: RESP 18; TEMP 97.9
[2022-11-14 09:51] LABS: POTASSIUM 4.1 mmol/L (3.5-5.1)
[2022-11-14 09:52] LABS: BLOOD UREA NITROGEN 26.2 mg/dL (7-18); CALCIUM 9.7 mg/dL (8.5-10.1)
[2022-11-14 09:57] LABS: CREATININE 1.7 mg/dL (0.55-1.3)
[2022-11-14 11:45] VITALS: BP 107/78; PULSE 101
[2022-11-14] MEDS: FUROSEMIDE 40 MG TABLET (FP) PO SCH (12:08)
[2022-11-14] MEDS: SPIRONOLACTONE 25 MG TABLET PO SCH (12:10)
[2022-11-14] MEDS: FOLIC ACID 1 MG TABLET (FP) PO SCH (12:10)
[2022-11-14] MEDS: FERROUS SO4 325 MG TABLET (FP) PO SCH (12:11)
[2022-11-14] MEDS: PANTOPRAZOLE 40 MG TABLET PO SCH (12:11)
[2022-11-14] MEDS: CYANOCOBALAMIN 1,000 MCG TABLET (FP) PO SCH (12:11)
[2022-11-14] MEDS: PYRIDOXINE HCL (B-6) 50 MG TABLET (FP) PO SCH (12:13)
[2022-11-14] MEDS: CHOLECALCIFEROL (VIT D3) 5000 UNITS (125 MCG) CAP PO SCH (12:13)
[2022-11-14] MEDS: COLLAGENASE CLOSTRIDIUM HIST. 30 GRAMS TUBE TP SCH (12:54)
== END 2022-11-14 14:06 | DRG 682 ==
LOC: JER 00:29 → JERBED 04:19 → J8W 09:22 → OBSVTOIN 10-14 12:01 → J8W 10-14 13:30
PROVIDERS: ADMIT Internal Medicine; ATTEND Internal Medicine
PROC: 30233N1 Transfusion of Nonautologous Red Blood Cells into Peripheral Vein, Percutaneous Approach (ICD-10-PCS; principal; 2022-10-11)
PROC: 0W9G3ZX Drainage of Peritoneal Cavity, Percutaneous Approach, Diagnostic (ICD-10-PCS; 2022-10-16)
PROC: 0W9G3ZX Drainage of Peritoneal Cavity, Percutaneous Approach, Diagnostic (ICD-10-PCS; 2022-10-22)
PROC: 0W9G3ZX Drainage of Peritoneal Cavity, Percutaneous Approach, Diagnostic (ICD-10-PCS; 2022-11-04)
PROC: 5A1D70Z Performance of Urinary Filtration, Intermittent, Less than 6 Hours Per Day (ICD-10-PCS; 2022-11-14)
DX: I12.0 Hypertensive chronic kidney disease with stage 5 chronic kidney disease or end stage renal disease (principal); E43 Unspecified severe protein-calorie malnutrition; N18.6 End stage renal disease; R64 Cachexia; C91.10 Chronic lymphocytic leukemia of B-cell type not having achieved remission; R18.8 Other ascites; D63.1 Anemia in chronic kidney disease; E87.6 Hypokalemia; Z99.2 Dependence on renal dialysis; Z68.21 Body mass index [BMI] 21.0-21.9, adult; E78.5 Hyperlipidemia, unspecified; E83.39 Other disorders of phosphorus metabolism; R33.9 Retention of urine, unspecified; K74.60 Unspecified cirrhosis of liver; E03.9 Hypothyroidism, unspecified
CPT/HCPCS: 0241U-QW; 36415; 36430; 36511; 71045-TC-FY; 76700-TC; 76942-TC; 80048; 80053; 80076; 81003; 82042; 82105; 82140; 82150; 82272; 82465; 82575; 82728; 82784; 82945; 82962; 82977; 83010; 83516; 83540; 83550; 83615; 83735; 83986; 84100; 84155; 84157; 84165; 84439; 84443; 84478; 85025; 85027; 85045; 85610; 85730; 86038; 86140; 86334; 86704; 86803; 86850; 86900; 86901; 86922; 87040; 87070; 87075; 87086; 87102; 87116; 87186; 87205; 87206; 87210; 87340; 87517; 87635; 88108; 88305-TC; 93005; 93010; 93306-TC; 93975; 97116-GP; 97162-GP; 99285-25; G0378; J0885; J1756; P9038; P9047; P9058; Q5106

== ENCOUNTER 2022-12-04 11:56 | Inpatient (IN) | payer OTHER ==
[2022-12-04] MEDS ORDERED: ACETAMINOPHEN 1000 MG/100 ML BAG IVPB ONE (12:18)
[2022-12-04] MEDS ORDERED: SODIUM CHLORIDE 250 ML IV STA (12:22)
[2022-12-04] MEDS ORDERED: ACETAMINOPHEN INJECTION 100 ML IVPB ONE (12:25)
[2022-12-04] MEDS ORDERED: LACTATED RINGERS SOLUTION 1,000 ML/1,000 ML INFUS.BAG IV SCH (12:30)
[2022-12-04] MEDS ORDERED: MEROPENEM 500 MG in DEXTROSE 5%-WATER 100 ML IVPB ONE (12:42)
[2022-12-04] MEDS ORDERED: CALCIUM GLUCONATE 10% - 1,000 MG/10 ML VIAL IVPB ONE (12:55)
[2022-12-04] MEDS ORDERED: VANCOMYCIN 1 GM in D5W (PRE-DOCKED) 1,000 MG/250 ML (RESTRICTED TO ID ONLY IVPB ONE (12:55)
[2022-12-04] MEDS ORDERED: MEROPENEM 500 MG VIAL (RESTRICTED TO ID) IVPB ONE (13:11)
[2022-12-04] MEDS ORDERED: VANCOMYCIN/WATER FOR INJ (PEG) 1,000 MG/200 ML BAG IVPB ONE (13:11)
[2022-12-04] MEDS ORDERED: CALCIUM CHLORIDE 1 GM/10 ML *DISP.SYRIN ONE (13:11)
[2022-12-04 13:17] LABS: VENOUS BASE EXCESS 0.5 mmol/L (-2-2); VENOUS O2 SATURATION 29.5 % (70-80); VENOUS PCO2 42.9 mmHg (38-52); VENOUS PH 7.392 (7.310-7.410)
[2022-12-04 13:21] LABS: HEMATOCRIT 27.7 % (35.4-49); HEMOGLOBIN 9.1 GM/dL (11.7-16.9); MCH 27.5 pg (25.7-33.7); MCHC 32.8 g/dl (32.0-35.9); MEAN CELL VOLUME 83.9 fl (80-96); MEAN PLT VOLUME 7.2 fl (7.5-11.1); PLATELET COUNT 181 10^3/uL (134-434); RDW 16.5 % (11.9-15.9); WHITE BLOOD COUNT 18.2 K/mm3 (4.0-10.0)
[2022-12-04] MEDS ORDERED: SODIUM CHLORIDE 750 ML IV STA (13:23)
[2022-12-04 13:28] LABS: INR 1.27 (0.83-1.09); PROTHROMBIN TIME (PATIENT) 14.7 SEC (9.7-13.0)
[2022-12-04 13:48] LABS: EPI CELLS >36 /uL (0-25.1); HYALINE CASTS 24 /uL (0-3.1); PH,URINE 8.5 (5.0-8.0); URINE APPEARANCE TURBID; URINE BACTERIA >9,000 /uL (0-1359); URINE BILIRUBIN NEGATIVE (NEGATIVE); URINE COLOR DK YELLOW; URINE GLUCOSE (UA) NEGATIVE (NEGATIVE); URINE KETONE NEGATIVE (NEGATIVE); URINE LEUK ESTERASE 3+ (NEGATIVE); URINE NITRITE NEGATIVE (NEGATIVE); URINE PROTEIN 3+ (NEGATIVE); URINE RBC 282 /uL (0-23.9); URINE WBC 10675 /uL (0-25.8)
[2022-12-04 13:51] LABS: ANISOCYTOSIS 0; HELMET CELLS 0; HOWELL-JOLLY BODIES 0; MACROCYTOSIS 0; OVALOCYTE 0; ROULEAU 0; SICKELED CELLS 0; TARGET CELLS 0; TEAR DROP CELLS 0; TOXIC GRANULATION 0
[2022-12-04 14:12] LABS: LACTIC ACID 3.5 mmol/L (0.4-2.0)
[2022-12-04 14:14] LABS: YEAST NEGATIVE (NEGATIVE)
[2022-12-04 14:19] LABS: POTASSIUM 3.9 mmol/L (3.5-5.1)
[2022-12-04 14:22] LABS: ALBUMIN 2.4 g/dl (3.4-5.0); BLOOD UREA NITROGEN 70.3 mg/dL (7-18); CALCIUM 10.2 mg/dL (8.5-10.1)
[2022-12-04 14:25] LABS: CREATININE 2.6 mg/dL (0.55-1.3)
[2022-12-04 14:26] LABS: BILIRUBIN,TOTAL 0.8 mg/dL (0.2-1); TOT PROT 5.5 g/dl (6.4-8.2)
[2022-12-04] MEDS ORDERED: SODIUM CHLORIDE 1,000 ML IV STA (15:15)
[2022-12-04] MEDS ORDERED: NOREPINEPHRINE BITARTRATE/D5W 8 MG/250 ML BAG IVPB ONE (16:39)
[2022-12-04] MEDS ORDERED: NOREPINEPHRINE BITARTRATE 4 MG/4 ML ML IV ONE (18:04)
[2022-12-04] MEDS: NOREPINEPHRINE BITARTRATE 4,000 MCG in DEXTROSE 5%-WATER - 496 ML IV SCH (18:22)
[2022-12-04] MEDS: LINEZOLID 600 MG PREMIX BAG 600 MG/300 ML BAG IVPB SCH (19:43)
[2022-12-04] MEDS ORDERED: LACTULOSE 20 GM/30 ML UDC (FOR ORAL USE ONLY) PO SCH (20:15)
[2022-12-04] MEDS ORDERED: LACTULOSE 20 GM/30 ML UDC (FOR ORAL USE ONLY) PEG SCH (20:16)
[2022-12-04] MEDS ORDERED: FENTANYL CITRATE/PF 50 MCG/ML VIAL IVPUSH ONE (20:35)
[2022-12-04 22:31] LABS: ARTERIAL BLD GAS O2 SATURATION 98.7 % (95-98); ARTERIAL BLOOD GAS BASE EXCESS -2.2 mmol/L (-2-2); ARTERIAL BLOOD GAS PO2 139.9 mmHg (80-100); ARTERIAL BLOOD GAS pH 7.375 (7.350-7.450)
[2022-12-04] MEDS: LACTULOSE 20 GM/30 ML UDC (FOR ORAL USE ONLY) PEG SCH (22:45)
[2022-12-04] MEDS: MUPIROCIN 2% TOPICAL OINTMENT FOR DECOLONIZATION NS SCH (22:45)
[2022-12-04] MEDS: CHLORHEXIDINE GLUCONATE 4% CLEANSER FOR DECOLONIZATION TP SCH (22:46)
[2022-12-04] MEDS: HEPARIN NA (PORCINE) 5,000 UNITS/ML 1ML VIAL SQ SCH (22:46)
[2022-12-04] MEDS ORDERED: ALBUTEROL SO4 0.083% IH SOL 2.5 MG/3 ML VIAL.NEB. NEB PRN (23:16)
[2022-12-05] MEDS ORDERED: MEROPENEM 500 MG in DEXTROSE 5%-WATER 100 ML IVPB SCH ×2
[2022-12-05] MEDS: LINEZOLID 600 MG PREMIX BAG 600 MG/300 ML BAG IVPB SCH (06:19)
[2022-12-05] MEDS: HEPARIN NA (PORCINE) 5,000 UNITS/ML 1ML VIAL SQ SCH ×3 (06:19→21:53)
[2022-12-05] MEDS: NOREPINEPHRINE BITARTRATE 4,000 MCG in DEXTROSE 5%-WATER - 496 ML IV SCH ×2 (06:56→20:39)
[2022-12-05 07:08] LABS: HEMATOCRIT 20.5 % (35.4-49); MCH 27.9 pg (25.7-33.7); MCHC 33.1 g/dl (32.0-35.9); MEAN CELL VOLUME 84.2 fl (80-96); MEAN PLT VOLUME 7.7 fl (7.5-11.1); PLATELET COUNT 134 10^3/uL (134-434); RBC 2.44 M/mm3 (4.00-5.60); RDW 16.7 % (11.9-15.9); WHITE BLOOD COUNT 13.1 K/mm3 (4.0-10.0)
[2022-12-05 07:20] LABS: POTASSIUM 3.6 mmol/L (3.5-5.1)
[2022-12-05 07:21] LABS: HEMOGLOBIN 6.8 GM/dL (11.7-16.9)
[2022-12-05 07:23] LABS: INR 1.37 (0.83-1.09); PROTHROMBIN TIME (PATIENT) 15.8 SEC (9.7-13.0)
[2022-12-05 07:24] LABS: MAGNESIUM 1.7 mg/dL (1.8-2.4)
[2022-12-05 07:26] LABS: ACTIVATED PTT 28.9 SECONDS (25.2-36.5)
[2022-12-05 07:27] LABS: CREATININE 2.6 mg/dL (0.55-1.3); PHOSPHOROUS 3.5 mg/dL (2.5-4.9)
[2022-12-05 07:29] LABS: BILIRUBIN,TOTAL 0.8 mg/dL (0.2-1); TOT PROT 4.3 g/dl (6.4-8.2)
[2022-12-05 07:49] LABS: ALBUMIN 1.8 g/dl (3.4-5.0); CALCIUM 8.6 mg/dL (8.5-10.1)
[2022-12-05] MEDS ORDERED: POTASSIUM PHOSPHATE 30 MM in SODIUM CHLORIDE 500 ML IVPB ONE (09:15)
[2022-12-05 09:46] LABS: ANISOCYTOSIS 3+; MACROCYTOSIS 0
[2022-12-05] MEDS ORDERED: SODIUM CHLORIDE 1,000 ML IV STA (10:22)
[2022-12-05] MEDS: LACTULOSE 20 GM/30 ML UDC (FOR ORAL USE ONLY) PEG SCH (10:58)
[2022-12-05] MEDS: PANTOPRAZOLE SODIUM 40 MG VIAL IVPUSH SCH (11:02)
[2022-12-05] MEDS: GENTAMICIN SO4 0.1% TOPICAL OINTMENT 15 GM/TUBE TUBE TP SCH (11:03)
[2022-12-05] MEDS: PYRIDOXINE HCL (B-6) 50 MG TABLET (FP) GT SCH (11:03)
[2022-12-05] MEDS: CYANOCOBALAMIN 1,000 MCG TABLET (FP) GT SCH (11:03)
[2022-12-05] MEDS: MUPIROCIN 2% TOPICAL OINTMENT FOR DECOLONIZATION NS SCH ×2 (11:04→21:53)
[2022-12-05] MEDS: COLLAGENASE CLOSTRIDIUM HIST. 30 GRAMS TUBE TP SCH (11:05)
[2022-12-05] MEDS: FOLIC ACID 1 MG TABLET (FP) GT SCH (11:18)
[2022-12-05] MEDS: MEROPENEM 500 MG in DEXTROSE 5%-WATER 100 ML IVPB SCH ×2 (12:00→22:52)
[2022-12-05] MEDS ORDERED: SODIUM CHLORIDE 250 ML IV PRN (13:46)
[2022-12-05] MEDS: LEVOTHYROXINE SODIUM 100 MCG 5 ML VIAL IVPUSH SCH (17:19)
[2022-12-05] MEDS: LINEZOLID 600 MG PREMIX BAG 600 MG in PREMIX 300 IVPB SCH (21:37)
[2022-12-05] MEDS: CHLORHEXIDINE GLUCONATE 4% CLEANSER FOR DECOLONIZATION TP SCH (21:53)
[2022-12-05] MEDS: POLYETHYLENE GLYCOL (HEALTHYLAX) 3350 17 GM PACKET PO SCH (21:53)
[2022-12-05] MEDS ORDERED: PATIENT'S OWN MEDICATION (NON-FORMULARY) (Mirtazapine [Mirtazapine] 7.5 MG Tablet) GT SCH (22:00)
[2022-12-06] MEDS ORDERED: LINEZOLID 600 MG PREMIX BAG 600 MG in PREMIX 300 IVPB SCH (00:15)
[2022-12-06] MEDS ORDERED: LINEZOLID 600 MG PREMIX BAG 600 MG/300 ML BAG IVPB SCH (02:00)
[2022-12-06] MEDS: HEPARIN NA (PORCINE) 5,000 UNITS/ML 1ML VIAL SQ SCH ×3 (05:46→22:09)
[2022-12-06 07:01] LABS: HEMATOCRIT 22.6 % (35.4-49); HEMOGLOBIN 7.8 GM/dL (11.7-16.9); MCH 28.3 pg (25.7-33.7); MCHC 34.4 g/dl (32.0-35.9); MEAN CELL VOLUME 82.4 fl (80-96); MEAN PLT VOLUME 7.7 fl (7.5-11.1); PLATELET COUNT 134 10^3/uL (134-434); RBC 2.74 M/mm3 (4.00-5.60); RDW 16.5 % (11.9-15.9); WHITE BLOOD COUNT 9.4 K/mm3 (4.0-10.0)
[2022-12-06 07:16] LABS: POTASSIUM 3.6 mmol/L (3.5-5.1)
[2022-12-06 07:19] LABS: ALBUMIN 1.7 g/dl (3.4-5.0); CALCIUM 8.3 mg/dL (8.5-10.1)
[2022-12-06 07:21] LABS: MAGNESIUM 1.5 mg/dL (1.8-2.4)
[2022-12-06 07:22] LABS: CREATININE 1.7 mg/dL (0.55-1.3); PHOSPHOROUS 2.8 mg/dL (2.5-4.9)
[2022-12-06 07:24] LABS: BILIRUBIN,TOTAL 0.8 mg/dL (0.2-1); TOT PROT 3.9 g/dl (6.4-8.2)
[2022-12-06 07:35] LABS: BLOOD UREA NITROGEN 39.7 mg/dL (7-18)
[2022-12-06] MEDS: POLYETHYLENE GLYCOL (HEALTHYLAX) 3350 17 GM PACKET PO SCH ×3 (09:53→22:19)
[2022-12-06] MEDS: PANTOPRAZOLE SODIUM 40 MG VIAL IVPUSH SCH (09:54)
[2022-12-06] MEDS: FOLIC ACID 1 MG TABLET (FP) GT SCH (09:54)
[2022-12-06] MEDS: MUPIROCIN 2% TOPICAL OINTMENT FOR DECOLONIZATION NS SCH (09:54)
[2022-12-06] MEDS: GENTAMICIN SO4 0.1% TOPICAL OINTMENT 15 GM/TUBE TUBE TP SCH (09:54)
[2022-12-06] MEDS: COLLAGENASE CLOSTRIDIUM HIST. 30 GRAMS TUBE TP SCH (09:55)
[2022-12-06] MEDS: CYANOCOBALAMIN 1,000 MCG TABLET (FP) GT SCH (09:56)
[2022-12-06] MEDS: PYRIDOXINE HCL (B-6) 50 MG TABLET (FP) GT SCH (09:56)
[2022-12-06] MEDS: LEVOTHYROXINE SODIUM 100 MCG 5 ML VIAL IVPUSH SCH (09:56)
[2022-12-06] MEDS ORDERED: VITAMIN B COMP W-C 1 EA TABLET (NEPHRO-VITE) PO SCH (10:00)
[2022-12-06] MEDS: MEROPENEM 500 MG in DEXTROSE 5%-WATER 100 ML IVPB SCH (11:28)
[2022-12-06] MEDS ORDERED: ALBUTEROL SO4 0.083% IH SOL 2.5 MG/3 ML VIAL.NEB. NEB PRN (17:58)
[2022-12-06] MEDS ORDERED: MUPIROCIN 2% TOPICAL OINTMENT FOR DECOLONIZATION NS SCH (22:00)
[2022-12-06] MEDS ORDERED: CHLORHEXIDINE GLUCONATE 4% CLEANSER FOR DECOLONIZATION TP SCH (22:00)
[2022-12-06] MEDS: PATIENT'S OWN MEDICATION (NON-FORMULARY) (Calcium Alginate [Kendall] 1 EACH Bandage) TD SCH (22:21)
[2022-12-07] MEDS: HEPARIN NA (PORCINE) 5,000 UNITS/ML 1ML VIAL SQ SCH ×3 (07:28→21:32)
[2022-12-07] MEDS: LEVOTHYROXINE SODIUM 100 MCG 5 ML VIAL IVPUSH SCH (07:28)
[2022-12-07] MEDS: PANTOPRAZOLE SODIUM 40 MG VIAL IVPUSH SCH (09:20)
[2022-12-07] MEDS: CYANOCOBALAMIN 1,000 MCG TABLET (FP) GT SCH (09:20)
[2022-12-07] MEDS: PYRIDOXINE HCL (B-6) 50 MG TABLET (FP) GT SCH (09:20)
[2022-12-07] MEDS: FOLIC ACID 1 MG TABLET (FP) GT SCH (09:20)
[2022-12-07] MEDS: POLYETHYLENE GLYCOL (HEALTHYLAX) 3350 17 GM PACKET PO SCH ×2 (09:21→21:33)
[2022-12-07] MEDS: VITAMIN B COMP W-C 1 EA TABLET (NEPHRO-VITE) PO SCH (09:21)
[2022-12-07] MEDS: COLLAGENASE CLOSTRIDIUM HIST. 30 GRAMS TUBE TP SCH (09:22)
[2022-12-07 09:53] LABS: HEMATOCRIT 25.7 % (35.4-49); HEMOGLOBIN 8.7 GM/dL (11.7-16.9); MCH 28.3 pg (25.7-33.7); MCHC 33.9 g/dl (32.0-35.9); MEAN CELL VOLUME 83.5 fl (80-96); MEAN PLT VOLUME 7.3 fl (7.5-11.1); PLATELET COUNT 186 10^3/uL (134-434); RBC 3.08 M/mm3 (4.00-5.60); RDW 16.3 % (11.9-15.9); WHITE BLOOD COUNT 9.5 K/mm3 (4.0-10.0)
[2022-12-07] MEDS ORDERED: GENTAMICIN SO4 0.1% TOPICAL OINTMENT 15 GM/TUBE TUBE TP SCH (10:00)
[2022-12-07 10:22] LABS: POTASSIUM 3.8 mmol/L (3.5-5.1)
[2022-12-07 10:23] LABS: CALCIUM 8.4 mg/dL (8.5-10.1)
[2022-12-07 10:24] LABS: BLOOD UREA NITROGEN 56.8 mg/dL (7-18); MAGNESIUM 1.8 mg/dL (1.8-2.4)
[2022-12-07 10:27] LABS: PHOSPHOROUS 2.8 mg/dL (2.5-4.9)
[2022-12-07 10:28] LABS: CREATININE 2.6 mg/dL (0.55-1.3)
[2022-12-07] MEDS ORDERED: SODIUM CHLORIDE 250 ML IV PRN (11:12)
[2022-12-07] MEDS ORDERED: FUROSEMIDE 40 MG/4 ML INJECTABLE VIAL IVPUSH ONE (11:30)
[2022-12-07] MEDS: MEROPENEM 500 MG in DEXTROSE 5%-WATER 100 ML IVPB SCH ×3 (12:07→22:35)
[2022-12-07] MEDS: morphine SULFATE 4 MG/ML VIAL IVPUSH PRN ×2 (17:02→21:32)
[2022-12-08] MEDS: morphine SULFATE 4 MG/ML VIAL IVPUSH PRN ×3 (02:34→17:28)
[2022-12-08] MEDS: HEPARIN NA (PORCINE) 5,000 UNITS/ML 1ML VIAL SQ SCH ×2 (06:19→16:43)
[2022-12-08] MEDS: LEVOTHYROXINE SODIUM 100 MCG 5 ML VIAL IVPUSH SCH (06:19)
[2022-12-08 09:42] LABS: HEMATOCRIT 25.8 % (35.4-49); HEMOGLOBIN 8.8 GM/dL (11.7-16.9); MCH 28.8 pg (25.7-33.7); MCHC 34.1 g/dl (32.0-35.9); MEAN CELL VOLUME 84.4 fl (80-96); MEAN PLT VOLUME 7.3 fl (7.5-11.1); PLATELET COUNT 188 10^3/uL (134-434); RBC 3.06 M/mm3 (4.00-5.60); RDW 16.2 % (11.9-15.9); WHITE BLOOD COUNT 8.4 K/mm3 (4.0-10.0)
[2022-12-08 09:48] LABS: POTASSIUM 3.8 mmol/L (3.5-5.1)
[2022-12-08 09:56] LABS: CALCIUM 8.7 mg/dL (8.5-10.1)
[2022-12-08 09:57] LABS: BLOOD UREA NITROGEN 68.7 mg/dL (7-18)
[2022-12-08 10:00] LABS: CREATININE 3.1 mg/dL (0.55-1.3)
[2022-12-08 10:38] LABS: ANISOCYTOSIS 2+; MACROCYTOSIS 0
[2022-12-08] MEDS ORDERED: EPOETIN ALFA-EPBX 10,000 UNIT/ML VIAL IVPUSH ONE (11:12)
[2022-12-08] MEDS: FOLIC ACID 1 MG TABLET (FP) GT SCH (11:24)
[2022-12-08] MEDS: PANTOPRAZOLE SODIUM 40 MG VIAL IVPUSH SCH (11:24)
[2022-12-08] MEDS: CYANOCOBALAMIN 1,000 MCG TABLET (FP) GT SCH (11:24)
[2022-12-08] MEDS: MEROPENEM 500 MG in DEXTROSE 5%-WATER 100 ML IVPB SCH ×2 (11:24→22:54)
[2022-12-08] MEDS: COLLAGENASE CLOSTRIDIUM HIST. 30 GRAMS TUBE TP SCH (11:25)
[2022-12-08] MEDS: POLYETHYLENE GLYCOL (HEALTHYLAX) 3350 17 GM PACKET PO SCH ×2 (11:25→22:54)
[2022-12-08] MEDS: VITAMIN B COMP W-C 1 EA TABLET (NEPHRO-VITE) PO SCH (11:25)
[2022-12-08] MEDS: PYRIDOXINE HCL (B-6) 50 MG TABLET (FP) GT SCH (11:27)
[2022-12-08] MEDS: FUROSEMIDE 40 MG TABLET (FP) PO SCH (12:54)
[2022-12-08] MEDS: ALBUMIN HUMAN 25% 12.5 GM/50 ML VIAL IVPB SCH ×10 (14:29→14:38)
[2022-12-08] MEDS: PATIENT'S OWN MEDICATION (NON-FORMULARY) (Calcium Alginate [Kendall] 1 EACH Bandage) TD SCH (14:29)
[2022-12-08 15:00] VITALS: BMI 21.9
[2022-12-09] MEDS: HEPARIN NA (PORCINE) 5,000 UNITS/ML 1ML VIAL SQ SCH ×4 (00:40→22:08)
[2022-12-09] MEDS: LEVOTHYROXINE SODIUM 100 MCG 5 ML VIAL IVPUSH SCH (06:11)
[2022-12-09] MEDS: FOLIC ACID 1 MG TABLET (FP) GT SCH (09:21)
[2022-12-09] MEDS: FUROSEMIDE 40 MG TABLET (FP) PO SCH (09:21)
[2022-12-09] MEDS: CYANOCOBALAMIN 1,000 MCG TABLET (FP) GT SCH (09:22)
[2022-12-09] MEDS: PYRIDOXINE HCL (B-6) 50 MG TABLET (FP) GT SCH (09:22)
[2022-12-09] MEDS: POLYETHYLENE GLYCOL (HEALTHYLAX) 3350 17 GM PACKET PO SCH (09:22)
[2022-12-09] MEDS: VITAMIN B COMP W-C 1 EA TABLET (NEPHRO-VITE) PO SCH (09:22)
[2022-12-09] MEDS: PANTOPRAZOLE SODIUM 40 MG VIAL IVPUSH SCH (09:22)
[2022-12-09] MEDS: morphine SULFATE 4 MG/ML VIAL IVPUSH PRN ×3 (09:23→18:03)
[2022-12-09] MEDS: COLLAGENASE CLOSTRIDIUM HIST. 30 GRAMS TUBE TP SCH (09:23)
[2022-12-09] MEDS: MEROPENEM 500 MG in DEXTROSE 5%-WATER 100 ML IVPB SCH ×2 (12:34→23:08)
[2022-12-09] MEDS: FINASTERIDE 5 MG TABLET (FP) GT SCH (18:05)
[2022-12-09] MEDS: POLYETHYLENE GLYCOL (HEALTHYLAX) 3350 17 GM PACKET GT SCH (22:08)
[2022-12-10] MEDS: HEPARIN NA (PORCINE) 5,000 UNITS/ML 1ML VIAL SQ SCH ×3 (07:04→21:05)
[2022-12-10] MEDS: LEVOTHYROXINE SODIUM 100 MCG 5 ML VIAL IVPUSH SCH (07:05)
[2022-12-10 08:52] LABS: HEMATOCRIT 25.3 % (35.4-49); HEMOGLOBIN 8.6 GM/dL (11.7-16.9); MCH 28.1 pg (25.7-33.7); MEAN CELL VOLUME 82.7 fl (80-96); MEAN PLT VOLUME 6.8 fl (7.5-11.1); PLATELET COUNT 214 10^3/uL (134-434); RBC 3.06 M/mm3 (4.00-5.60); RDW 16.6 % (11.9-15.9); WHITE BLOOD COUNT 7.9 K/mm3 (4.0-10.0)
[2022-12-10 09:13] LABS: POTASSIUM 4.2 mmol/L (3.5-5.1)
[2022-12-10 09:16] LABS: BLOOD UREA NITROGEN 78.2 mg/dL (7-18); CALCIUM 8.8 mg/dL (8.5-10.1)
[2022-12-10 09:19] LABS: CREATININE 3.4 mg/dL (0.55-1.3)
[2022-12-10 09:21] LABS: BILIRUBIN,TOTAL 0.6 mg/dL (0.2-1); TOT PROT 4.2 g/dl (6.4-8.2)
[2022-12-10 09:34] LABS: ANISOCYTOSIS 0; HELMET CELLS 0; HOWELL-JOLLY BODIES 0; MACROCYTOSIS 0; OVALOCYTE 0; ROULEAU 0; SICKELED CELLS 0; TARGET CELLS 0; TEAR DROP CELLS 0; TOXIC GRANULATION 0
[2022-12-10] MEDS: PANTOPRAZOLE SODIUM 40 MG VIAL IVPUSH SCH (10:40)
[2022-12-10] MEDS ORDERED: FUROSEMIDE 40 MG TABLET (FP) GT SCH ×2 (10:40→10:45)
[2022-12-10] MEDS: PYRIDOXINE HCL (B-6) 50 MG TABLET (FP) GT SCH (10:41)
[2022-12-10] MEDS: POLYETHYLENE GLYCOL (HEALTHYLAX) 3350 17 GM PACKET GT SCH ×2 (10:41→21:05)
[2022-12-10] MEDS: FINASTERIDE 5 MG TABLET (FP) GT SCH (10:41)
[2022-12-10] MEDS: VITAMIN B COMP W-C 1 EA TABLET (NEPHRO-VITE) GT SCH (10:41)
[2022-12-10] MEDS: FOLIC ACID 1 MG TABLET (FP) GT SCH (10:41)
[2022-12-10] MEDS: CYANOCOBALAMIN 1,000 MCG TABLET (FP) GT SCH (10:41)
[2022-12-10] MEDS: FUROSEMIDE 40 MG TABLET (FP) PO SCH (11:06)
[2022-12-10] MEDS ORDERED: MORPHINE SULFATE/0.9% NACL/PF 100 MG/100 ML BAG IVPB SCH (12:00)
[2022-12-10] MEDS: MEROPENEM 500 MG in DEXTROSE 5%-WATER 100 ML IVPB SCH ×2 (12:01→22:32)
[2022-12-10] MEDS: CALCIUM ALGINATE TD SCH ×2 (12:12→12:13)
[2022-12-10] MEDS: COLLAGENASE CLOSTRIDIUM HIST. 30 GRAMS TUBE TP SCH (13:26)
[2022-12-10] MEDS: SODIUM CHLORIDE 1,000 ML IV SCH (13:50)
[2022-12-10] MEDS: SODIUM CHLORIDE 0.9% 500 ML INFUS.BAG IV SCH ×2 (14:26→14:27)
[2022-12-10 16:19] LABS: ATYPICAL pANCA <1:20 titer (Neg:<1:20); C-ANCA <1:20 titer (Neg:<1:20)
[2022-12-10] MEDS: morphine SULFATE 4 MG/ML VIAL IVPUSH PRN (16:41)
[2022-12-11] MEDS: LEVOTHYROXINE SODIUM 100 MCG 5 ML VIAL IVPUSH SCH (06:33)
[2022-12-11] MEDS: HEPARIN NA (PORCINE) 5,000 UNITS/ML 1ML VIAL SQ SCH ×3 (06:33→22:09)
[2022-12-11] MEDS: morphine SULFATE 4 MG/ML VIAL IVPUSH PRN (06:35)
[2022-12-11] MEDS: POLYETHYLENE GLYCOL (HEALTHYLAX) 3350 17 GM PACKET GT SCH ×3 (10:35→22:09)
[2022-12-11] MEDS: PANTOPRAZOLE SODIUM 40 MG VIAL IVPUSH SCH (10:45)
[2022-12-11] MEDS: CYANOCOBALAMIN 1,000 MCG TABLET (FP) GT SCH (10:45)
[2022-12-11] MEDS: FUROSEMIDE 40 MG/5 ML UNIT-DOSE CUP GT SCH (10:45)
[2022-12-11] MEDS: VITAMIN B COMP W-C 1 EA TABLET (NEPHRO-VITE) GT SCH (10:45)
[2022-12-11] MEDS: PYRIDOXINE HCL (B-6) 50 MG TABLET (FP) GT SCH (10:45)
[2022-12-11] MEDS: FINASTERIDE 5 MG TABLET (FP) GT SCH (10:45)
[2022-12-11] MEDS: FOLIC ACID 1 MG TABLET (FP) GT SCH (10:45)
[2022-12-11] MEDS: COLLAGENASE CLOSTRIDIUM HIST. 30 GRAMS TUBE TP SCH (10:48)
[2022-12-11] MEDS: MEROPENEM 500 MG in DEXTROSE 5%-WATER 100 ML IVPB SCH ×2 (11:54→22:48)
[2022-12-11] MEDS: MORPHINE SULFATE/0.9% NACL/PF 100 MG/100 ML BAG IVPB SCH (13:09)
[2022-12-11] MEDS: SODIUM CHLORIDE 1,000 ML IV SCH (15:01)
[2022-12-12] MEDS: LEVOTHYROXINE SODIUM 100 MCG 5 ML VIAL IVPUSH SCH (06:38)
[2022-12-12] MEDS: HEPARIN NA (PORCINE) 5,000 UNITS/ML 1ML VIAL SQ SCH ×3 (06:39→23:27)
[2022-12-12] MEDS: CYANOCOBALAMIN 1,000 MCG TABLET (FP) GT SCH (10:25)
[2022-12-12] MEDS: FINASTERIDE 5 MG TABLET (FP) GT SCH (10:25)
[2022-12-12] MEDS: FOLIC ACID 1 MG TABLET (FP) GT SCH (10:25)
[2022-12-12] MEDS: POLYETHYLENE GLYCOL (HEALTHYLAX) 3350 17 GM PACKET GT SCH ×2 (10:25→23:28)
[2022-12-12] MEDS: VITAMIN B COMP W-C 1 EA TABLET (NEPHRO-VITE) GT SCH (10:25)
[2022-12-12] MEDS: PANTOPRAZOLE SODIUM 40 MG VIAL IVPUSH SCH (10:26)
[2022-12-12] MEDS: COLLAGENASE CLOSTRIDIUM HIST. 30 GRAMS TUBE TP SCH (10:28)
[2022-12-12] MEDS: FUROSEMIDE 40 MG/5 ML UNIT-DOSE CUP GT SCH (10:31)
[2022-12-12] MEDS: PYRIDOXINE HCL (B-6) 50 MG TABLET (FP) GT SCH (10:31)
[2022-12-12] MEDS: MEROPENEM 500 MG in DEXTROSE 5%-WATER 100 ML IVPB SCH ×2 (12:31→23:26)
[2022-12-12 12:46] LABS: HEMOGLOBIN 8.7 GM/dL (11.7-16.9); MCH 28.6 pg (25.7-33.7); MCHC 33.6 g/dl (32.0-35.9); MEAN CELL VOLUME 84.9 fl (80-96); PLATELET COUNT 224 10^3/uL (134-434); RBC 3.06 M/mm3 (4.00-5.60); RDW 16.3 % (11.9-15.9); WHITE BLOOD COUNT 7.4 K/mm3 (4.0-10.0)
[2022-12-12 13:15] LABS: POTASSIUM 4.3 mmol/L (3.5-5.1)
[2022-12-12 13:17] LABS: CALCIUM 9.2 mg/dL (8.5-10.1)
[2022-12-12 13:18] LABS: ALBUMIN 2.2 g/dl (3.4-5.0); BLOOD UREA NITROGEN 80.6 mg/dL (7-18)
[2022-12-12 13:23] LABS: BILIRUBIN,TOTAL 0.6 mg/dL (0.2-1); TOT PROT 4.4 g/dl (6.4-8.2)
[2022-12-12 14:41] LABS: ANISOCYTOSIS 0; HELMET CELLS 0; HOWELL-JOLLY BODIES 0; MACROCYTOSIS 0; OVALOCYTE 0; ROULEAU 0; SICKELED CELLS 0; TARGET CELLS 0; TEAR DROP CELLS 0; TOXIC GRANULATION 0
[2022-12-12] MEDS ORDERED: HEPARIN NA (PORCINE) 5,000 UNITS/ML 1ML VIAL ONE (16:29)
[2022-12-12] MEDS ORDERED: SODIUM CHLORIDE 250 ML IV PRN (22:32)
[2022-12-13] MEDS: HEPARIN NA (PORCINE) 5,000 UNITS/ML 1ML VIAL SQ SCH ×3 (06:08→21:58)
[2022-12-13] MEDS: LEVOTHYROXINE SODIUM 100 MCG 5 ML VIAL IVPUSH SCH (06:15)
[2022-12-13] MEDS: MORPHINE SULFATE/0.9% NACL/PF 100 MG/100 ML BAG IVPB SCH ×2 (10:11→14:50)
[2022-12-13] MEDS: SODIUM CHLORIDE 1,000 ML IV SCH ×2 (10:11→14:50)
[2022-12-13] MEDS: PANTOPRAZOLE SODIUM 40 MG VIAL IVPUSH SCH (10:13)
[2022-12-13] MEDS: FUROSEMIDE 40 MG/5 ML UNIT-DOSE CUP GT SCH (10:13)
[2022-12-13] MEDS: POLYETHYLENE GLYCOL (HEALTHYLAX) 3350 17 GM PACKET GT SCH ×2 (10:13→21:57)
[2022-12-13] MEDS: FOLIC ACID 1 MG TABLET (FP) GT SCH (10:14)
[2022-12-13] MEDS: VITAMIN B COMP W-C 1 EA TABLET (NEPHRO-VITE) GT SCH (10:14)
[2022-12-13] MEDS: FINASTERIDE 5 MG TABLET (FP) GT SCH (10:14)
[2022-12-13] MEDS: PYRIDOXINE HCL (B-6) 50 MG TABLET (FP) GT SCH (10:14)
[2022-12-13] MEDS: CYANOCOBALAMIN 1,000 MCG TABLET (FP) GT SCH (10:15)
[2022-12-13] MEDS: COLLAGENASE CLOSTRIDIUM HIST. 30 GRAMS TUBE TP SCH (10:16)
[2022-12-13] MEDS: morphine SULFATE 4 MG/ML VIAL IVPUSH PRN ×3 (10:46→21:57)
[2022-12-13 13:50] LABS: HEMATOCRIT 25.3 % (35.4-49); HEMOGLOBIN 8.5 GM/dL (11.7-16.9); MCH 28.8 pg (25.7-33.7); MCHC 33.8 g/dl (32.0-35.9); MEAN CELL VOLUME 85.2 fl (80-96); MEAN PLT VOLUME 7.4 fl (7.5-11.1); PLATELET COUNT 206 10^3/uL (134-434); RBC 2.97 M/mm3 (4.00-5.60); RDW 16.2 % (11.9-15.9); WHITE BLOOD COUNT 6.6 K/mm3 (4.0-10.0)
[2022-12-13 14:13] LABS: BLOOD UREA NITROGEN 81.2 mg/dL (7-18); CALCIUM 9.4 mg/dL (8.5-10.1)
[2022-12-13 14:17] LABS: CREATININE 2.8 mg/dL (0.55-1.3)
[2022-12-13] MEDS: MEROPENEM 500 MG in DEXTROSE 5%-WATER 100 ML IVPB SCH ×2 (16:38→23:31)
[2022-12-14] MEDS: LEVOTHYROXINE SODIUM 100 MCG 5 ML VIAL IVPUSH SCH (06:13)
[2022-12-14] MEDS: HEPARIN NA (PORCINE) 5,000 UNITS/ML 1ML VIAL SQ SCH ×3 (06:13→22:45)
[2022-12-14] MEDS: morphine SULFATE 4 MG/ML VIAL IVPUSH PRN (06:14)
[2022-12-14] MEDS: POLYETHYLENE GLYCOL (HEALTHYLAX) 3350 17 GM PACKET GT SCH ×2 (09:43→22:45)
[2022-12-14] MEDS: FUROSEMIDE 40 MG/5 ML UNIT-DOSE CUP GT SCH (09:44)
[2022-12-14] MEDS: CYANOCOBALAMIN 1,000 MCG TABLET (FP) GT SCH (09:44)
[2022-12-14] MEDS: FINASTERIDE 5 MG TABLET (FP) GT SCH (09:44)
[2022-12-14] MEDS: VITAMIN B COMP W-C 1 EA TABLET (NEPHRO-VITE) GT SCH (09:44)
[2022-12-14] MEDS: PYRIDOXINE HCL (B-6) 50 MG TABLET (FP) GT SCH (09:45)
[2022-12-14] MEDS: COLLAGENASE CLOSTRIDIUM HIST. 30 GRAMS TUBE TP SCH (09:45)
[2022-12-14] MEDS: PANTOPRAZOLE SODIUM 40 MG VIAL IVPUSH SCH (09:45)
[2022-12-14] MEDS: FOLIC ACID 1 MG TABLET (FP) GT SCH (10:11)
[2022-12-14] MEDS: MEROPENEM 500 MG in DEXTROSE 5%-WATER 100 ML IVPB SCH (12:13)
[2022-12-14] MEDS: MORPHINE SULFATE/0.9% NACL/PF 100 MG/100 ML BAG IVPB SCH (12:30)
[2022-12-14] MEDS: SODIUM CHLORIDE 1,000 ML IV SCH (14:24)
[2022-12-15] MEDS: MEROPENEM 500 MG in DEXTROSE 5%-WATER 100 ML IVPB SCH ×3 (00:07→22:53)
[2022-12-15] MEDS: HEPARIN NA (PORCINE) 5,000 UNITS/ML 1ML VIAL SQ SCH ×3 (06:13→21:19)
[2022-12-15] MEDS: LEVOTHYROXINE SODIUM 100 MCG 5 ML VIAL IVPUSH SCH (06:14)
[2022-12-15] MEDS: morphine SULFATE 4 MG/ML VIAL IVPUSH PRN ×3 (06:39→21:19)
[2022-12-15] MEDS: CYANOCOBALAMIN 1,000 MCG TABLET (FP) GT SCH (10:01)
[2022-12-15] MEDS: POLYETHYLENE GLYCOL (HEALTHYLAX) 3350 17 GM PACKET GT SCH ×3 (10:01→21:36)
[2022-12-15] MEDS: PANTOPRAZOLE SODIUM 40 MG VIAL IVPUSH SCH (10:01)
[2022-12-15] MEDS: VITAMIN B COMP W-C 1 EA TABLET (NEPHRO-VITE) GT SCH (10:01)
[2022-12-15] MEDS: FOLIC ACID 1 MG TABLET (FP) GT SCH (10:02)
[2022-12-15] MEDS: FINASTERIDE 5 MG TABLET (FP) GT SCH (10:02)
[2022-12-15] MEDS: FUROSEMIDE 40 MG/5 ML UNIT-DOSE CUP GT SCH (10:02)
[2022-12-15] MEDS: PYRIDOXINE HCL (B-6) 50 MG TABLET (FP) GT SCH (10:02)
[2022-12-15] MEDS: COLLAGENASE CLOSTRIDIUM HIST. 30 GRAMS TUBE TP SCH (10:03)
[2022-12-15] MEDS: MORPHINE SULFATE/0.9% NACL/PF 100 MG/100 ML BAG IVPB SCH (12:36)
[2022-12-15] MEDS: SODIUM CHLORIDE 1,000 ML IV SCH (14:49)
[2022-12-16] MEDS: LEVOTHYROXINE SODIUM 100 MCG 5 ML VIAL IVPUSH SCH (06:10)
[2022-12-16] MEDS: HEPARIN NA (PORCINE) 5,000 UNITS/ML 1ML VIAL SQ SCH ×3 (06:10→22:31)
[2022-12-16] MEDS: morphine SULFATE 4 MG/ML VIAL IVPUSH PRN ×2 (06:28→13:48)
[2022-12-16] MEDS ORDERED: FAMOTIDINE 40 MG/5 ML ORAL SUSPENSION PEG SCH (10:00)
[2022-12-16] MEDS ORDERED: MEROPENEM 500 MG VIAL (RESTRICTED TO ID) IVPB ONE (11:06)
[2022-12-16] MEDS: POLYETHYLENE GLYCOL (HEALTHYLAX) 3350 17 GM PACKET GT SCH ×3 (11:17→22:04)
[2022-12-16] MEDS: VITAMIN B COMP W-C 1 EA TABLET (NEPHRO-VITE) GT SCH (11:17)
[2022-12-16] MEDS: CYANOCOBALAMIN 1,000 MCG TABLET (FP) GT SCH (11:17)
[2022-12-16] MEDS: MEROPENEM 500 MG in DEXTROSE 5%-WATER 100 ML IVPB SCH ×2 (11:17→22:31)
[2022-12-16] MEDS: FOLIC ACID 1 MG TABLET (FP) GT SCH (11:17)
[2022-12-16] MEDS: FINASTERIDE 5 MG TABLET (FP) GT SCH (11:17)
[2022-12-16] MEDS: COLLAGENASE CLOSTRIDIUM HIST. 30 GRAMS TUBE TP SCH (11:18)
[2022-12-16] MEDS: PYRIDOXINE HCL (B-6) 50 MG TABLET (FP) GT SCH (11:18)
[2022-12-16] MEDS: MORPHINE SULFATE/0.9% NACL/PF 100 MG/100 ML BAG IVPB SCH (11:19)
[2022-12-16] MEDS ORDERED: SODIUM CHLORIDE 250 ML IV PRN (11:20)
[2022-12-16] MEDS: FAMOTIDINE 20 MG/2.5 ML ORAL LIQUID GT SCH (11:20)
[2022-12-16] MEDS: FUROSEMIDE 40 MG/5 ML UNIT-DOSE CUP GT SCH (11:22)
[2022-12-16] MEDS ORDERED: EPOETIN ALFA-EPBX 4,000 UNIT/ML VIAL SQ ONE (12:00)
[2022-12-16] MEDS: SODIUM CHLORIDE 1,000 ML IV SCH (14:46)
[2022-12-17] MEDS: morphine SULFATE 4 MG/ML VIAL IVPUSH PRN ×2 (00:58→16:20)
[2022-12-17] MEDS: HEPARIN NA (PORCINE) 5,000 UNITS/ML 1ML VIAL SQ SCH ×3 (05:44→22:16)
[2022-12-17] MEDS: LEVOTHYROXINE SODIUM 100 MCG 5 ML VIAL IVPUSH SCH (06:10)
[2022-12-17] MEDS: VITAMIN B COMP W-C 1 EA TABLET (NEPHRO-VITE) GT SCH (10:19)
[2022-12-17] MEDS: FINASTERIDE 5 MG TABLET (FP) GT SCH (10:19)
[2022-12-17] MEDS: CYANOCOBALAMIN 1,000 MCG TABLET (FP) GT SCH (10:19)
[2022-12-17] MEDS: FOLIC ACID 1 MG TABLET (FP) GT SCH (10:19)
[2022-12-17] MEDS: FAMOTIDINE 20 MG/2.5 ML ORAL LIQUID GT SCH (10:20)
[2022-12-17] MEDS: PYRIDOXINE HCL (B-6) 50 MG TABLET (FP) GT SCH (10:24)
[2022-12-17] MEDS: FUROSEMIDE 40 MG/5 ML UNIT-DOSE CUP GT SCH (10:24)
[2022-12-17] MEDS: POLYETHYLENE GLYCOL (HEALTHYLAX) 3350 17 GM PACKET GT SCH ×2 (10:26→22:16)
[2022-12-17] MEDS: MEROPENEM 500 MG in DEXTROSE 5%-WATER 100 ML IVPB SCH ×2 (13:21→22:59)
[2022-12-17] MEDS: COLLAGENASE CLOSTRIDIUM HIST. 30 GRAMS TUBE TP SCH (19:18)
[2022-12-17] MEDS: MORPHINE SULFATE/0.9% NACL/PF 100 MG/100 ML BAG IVPB SCH (19:19)
[2022-12-17] MEDS: SODIUM CHLORIDE 1,000 ML IV SCH (19:39)
[2022-12-18] MEDS: HEPARIN NA (PORCINE) 5,000 UNITS/ML 1ML VIAL SQ SCH ×3 (05:20→21:58)
[2022-12-18] MEDS: LEVOTHYROXINE SODIUM 100 MCG 5 ML VIAL IVPUSH SCH (06:02)
[2022-12-18] MEDS: VITAMIN B COMP W-C 1 EA TABLET (NEPHRO-VITE) GT SCH (10:28)
[2022-12-18] MEDS: CYANOCOBALAMIN 1,000 MCG TABLET (FP) GT SCH (10:28)
[2022-12-18] MEDS: FOLIC ACID 1 MG TABLET (FP) GT SCH (10:29)
[2022-12-18] MEDS: FINASTERIDE 5 MG TABLET (FP) GT SCH (10:29)
[2022-12-18] MEDS: POLYETHYLENE GLYCOL (HEALTHYLAX) 3350 17 GM PACKET GT SCH ×2 (10:29→22:24)
[2022-12-18] MEDS: FUROSEMIDE 40 MG/5 ML UNIT-DOSE CUP GT SCH (10:30)
[2022-12-18] MEDS: FAMOTIDINE 20 MG/2.5 ML ORAL LIQUID GT SCH (10:30)
[2022-12-18] MEDS: PYRIDOXINE HCL (B-6) 50 MG TABLET (FP) GT SCH (10:30)
[2022-12-18] MEDS: MORPHINE SULFATE/0.9% NACL/PF 100 MG/100 ML BAG IVPB SCH (10:40)
[2022-12-18] MEDS: MEROPENEM 500 MG in DEXTROSE 5%-WATER 100 ML IVPB SCH (12:44)
[2022-12-18] MEDS: morphine SULFATE 4 MG/ML VIAL IVPUSH PRN (13:24)
[2022-12-18] MEDS: SODIUM CHLORIDE 1,000 ML IV SCH (14:16)
[2022-12-18] MEDS: COLLAGENASE CLOSTRIDIUM HIST. 30 GRAMS TUBE TP SCH (17:26)
[2022-12-18 21:37] VITALS: RESP 18
[2022-12-19] MEDS: HEPARIN NA (PORCINE) 5,000 UNITS/ML 1ML VIAL SQ SCH ×3 (06:26→21:55)
[2022-12-19] MEDS: LEVOTHYROXINE SODIUM 100 MCG 5 ML VIAL IVPUSH SCH (06:26)
[2022-12-19] MEDS: FUROSEMIDE 40 MG/5 ML UNIT-DOSE CUP GT SCH (10:24)
[2022-12-19] MEDS: CYANOCOBALAMIN 1,000 MCG TABLET (FP) GT SCH (10:24)
[2022-12-19] MEDS: FINASTERIDE 5 MG TABLET (FP) GT SCH (10:24)
[2022-12-19] MEDS: POLYETHYLENE GLYCOL (HEALTHYLAX) 3350 17 GM PACKET GT SCH ×2 (10:24→21:55)
[2022-12-19] MEDS: FOLIC ACID 1 MG TABLET (FP) GT SCH (10:24)
[2022-12-19] MEDS: VITAMIN B COMP W-C 1 EA TABLET (NEPHRO-VITE) GT SCH (10:24)
[2022-12-19] MEDS: FAMOTIDINE 20 MG/2.5 ML ORAL LIQUID GT SCH (10:25)
[2022-12-19] MEDS: PYRIDOXINE HCL (B-6) 50 MG TABLET (FP) GT SCH (10:25)
[2022-12-19] MEDS: morphine SULFATE 4 MG/ML VIAL IVPUSH PRN (10:34)
[2022-12-19] MEDS: COLLAGENASE CLOSTRIDIUM HIST. 30 GRAMS TUBE TP SCH (11:32)
[2022-12-19] MEDS: SODIUM CHLORIDE 1,000 ML IV SCH (14:02)
[2022-12-19] MEDS: MORPHINE SULFATE/0.9% NACL/PF 100 MG/100 ML BAG IVPB SCH (16:26)
[2022-12-19 21:28] VITALS: BP 113/78; PULSE 98; TEMP 97.7
[2022-12-20] MEDS: morphine SULFATE 4 MG/ML VIAL IVPUSH PRN (02:24)
[2022-12-20] MEDS ORDERED: AMINO ACIDS/PROTEIN HYDROLYS 30 ML LIQUID.PKT GT SCH (08:00)
== END 2022-12-20 03:32 | disposition hospice, inpatient (51) | DRG 871 ==
LOC: JER 11:56 → JERBED 17:47 → JICU 18:48 → J8W 12-06 17:29
PROVIDERS: ADMIT Internal Medicine; ATTEND Internal Medicine
PROC: 4A133B1 Monitoring of Arterial Pressure, Peripheral, Percutaneous Approach (ICD-10-PCS; 2022-12-04)
PROC: 4A133J1 Monitoring of Arterial Pulse, Peripheral, Percutaneous Approach (ICD-10-PCS; 2022-12-04)
PROC: 05HN33Z Insertion of Infusion Device into Left Internal Jugular Vein, Percutaneous Approach (ICD-10-PCS; 2022-12-04)
PROC: 05HN33Z Insertion of Infusion Device into Left Internal Jugular Vein, Percutaneous Approach (ICD-10-PCS; 2022-12-04)
PROC: B544ZZA Ultrasonography of Left Jugular Veins, Guidance (ICD-10-PCS; 2022-12-04)
PROC: 30233N1 Transfusion of Nonautologous Red Blood Cells into Peripheral Vein, Percutaneous Approach (ICD-10-PCS; 2022-12-05)
PROC: 5A1D70Z Performance of Urinary Filtration, Intermittent, Less than 6 Hours Per Day (ICD-10-PCS; 2022-12-05)
PROC: 0JPT3XZ Removal of Tunneled Vascular Access Device from Trunk Subcutaneous Tissue and Fascia, Percutaneous Approach (ICD-10-PCS; 2022-12-06)
PROC: 0JH63XZ Insertion of Tunneled Vascular Access Device into Chest Subcutaneous Tissue and Fascia, Percutaneous Approach (ICD-10-PCS; principal; 2022-12-12)
DX: A41.50 Gram-negative sepsis, unspecified (principal); E43 Unspecified severe protein-calorie malnutrition; L89.154 Pressure ulcer of sacral region, stage 4; K65.9 Peritonitis, unspecified; R65.21 Severe sepsis with septic shock; N18.6 End stage renal disease; J69.0 Pneumonitis due to inhalation of food and vomit; M46.28 Osteomyelitis of vertebra, sacral and sacrococcygeal region; M86.9 Osteomyelitis, unspecified; G93.40 Encephalopathy, unspecified; N39.0 Urinary tract infection, site not specified; R18.8 Other ascites; J96.10 Chronic respiratory failure, unspecified whether with hypoxia or hypercapnia; I12.0 Hypertensive chronic kidney disease with stage 5 chronic kidney disease or end stage renal disease; E87.20 Acidosis, unspecified; Z68.1 Body mass index [BMI] 19.9 or less, adult; R64 Cachexia; C91.10 Chronic lymphocytic leukemia of B-cell type not having achieved remission; E03.9 Hypothyroidism, unspecified; R79.89 Other specified abnormal findings of blood chemistry; K74.60 Unspecified cirrhosis of liver; D64.9 Anemia, unspecified; K52.9 Noninfective gastroenteritis and colitis, unspecified; E78.5 Hyperlipidemia, unspecified; Z99.2 Dependence on renal dialysis
CPT/HCPCS: 0241U-QW; 36415; 36430; 36558; 36600; 70450-TC; 71045-TC-FY; 71275-TC; 74177-TC; 76705-TC; 80048; 80053; 80307; 81003; 82140; 82272; 82803; 82962; 83520; 83605; 83735; 84080; 84100; 84484; 85025; 85027; 85610; 85730; 86256; 86803; 86850; 86900; 86901; 86922; 87040; 87081; 87086; 87186; 87340; 87635; 87899; 93005; 93010; 93306-TC; 99285-25; J1644; P9058; Q9967